=== PATIENT | male | born 1965 | race Caucasian/White ===

== ENCOUNTER 2016-06-07 12:44 | Emergency (ER) | payer OTHER ==
[2016-06-07 13:49] VITALS: RESP 18
--- NOTE | 2016-06-07 14:55 | ED ---
General Adult HPI - General Chief complaint: Psychiatric Symptoms Stated complaint: Mental Health Time Seen by Provider: 06/07/16 14:33 Source: patient, family, RN/MD, RN notes reviewed Mode of arrival: ambulatory Limitations: no limitations - History of Present Illness Initial comments: Chief complaint and history of present illness a 51-year-old male sent emergency room from his doctor's office for evaluation by psychiatrist. And possible recommendation for medications for depression. Patient reports she's been depressed lately for multiple reasons one he is not alcoholic to he had part of his colon removed because of a perforated diverticulitis. And in this last several weeks he's been from his and wants a divorce. Patient reports that he has been depressed and he does not specifically say he is suicidal but said if he did he probably just overdosed on pills. He has been drinking again but not as much as he used to. wants to put him on Antabuse. wants the psychiatrist to evaluate for medication alteration. He is currently on mirtazapine and sertraline. - Related Data Home Medications Medication Instructions Recorded Confirmed Ascorbic Acid [Vitamin C] 500 mg PO DAILY 02/23/16 06/07/16 Cholecalciferol [Vitamin D3] 1,000 unit PO DAILY 02/23/16 06/07/16 Ibuprofen [Motrin] 800 mg PO TID PRN 02/23/16 06/07/16 Losartan [Cozaar] 25 mg PO DAILY 02/23/16 06/07/16 Sertraline [Zoloft] 150 mg PO DAILY 02/23/16 06/07/16 Simvastatin [Zocor] 40 mg PO DAILY 02/23/16 06/07/16 ALPRAZolam [Xanax] 0.5 mg PO DAILY PRN 05/04/16 06/07/16 Previous Rx's Medication Instructions Recorded Docusate [Colace] 100 mg PO BID #30 capsule 05/09/16 HYDROcodone/APAP 7.5-325MG [[place] 1 tab PO Q6HR PRN #20 tab 05/09/16 7.5-325] chlordiazePOXIDE HCl [Librium] 25 mg PO TID #15 capsule 06/07/16 cloNIDine HCL [Catapres] 0.1 mg PO BID #30 tab 06/07/16 Allergies Allergy/AdvReac Type Severity Reaction Status Date / Time No Known Allergies Allergy Verified 06/07/16 13:47 Review of Systems ROS Statement: Those systems with pertinent positive or pertinent negative responses have been documented in the HPI. Review of systems. Patient denying any headache or visual acuity changes no chest pain or shortness breath no GI/ problems. Recently he had his colostomy taken down. No difficulty with bowel movements. Denies any neuro deficits. Chief complaint is that of depression. All systems were otherwise reviewed. Past medical problems depression recently. Alcohol dependency, diverticulitis leading to a perforated diverticulitis. Surgeries bowel resection several months ago. He also had his septum repaired. Family history strokes and also there is family history of colon cancer he's been getting his colonoscopies routinely. Father was alcohol dependent. Denies any ALLERGIES. Nonsmoker. Alcohol use patient states she's not alcoholic. He states he had withdrawal problems when he came in for surgery he then detoxified all in hospital. In his starting to drink again but not heavily. ROS Other: All systems not noted in ROS Statement are negative. Past Medical History Past Medical History: Hyperlipidemia, Hypertension, Sleep Apnea/CPAP/BIPAP Additional Past Medical History / Comment(s): diverticulitis, colostomy, hx migraines History of Any Multi-Drug Resistant Organisms: None Reported Past Surgical History: Bowel Resection Additional Past Surgical History / Comment(s): deviated septum, colostomy(d/t diverticulitis), 16-16 had reverdal of colostomy. Past Anesthesia/Blood Transfusion Reactions: No Reported Reaction Past Psychological History: Anxiety, Depression Smoking Status: Former smoker Past Alcohol Use History: Occasional Additional Past Alcohol Use History / Comment(s): pt stated he started smoking at age 17 was smoking 1.5 ppd when he quit 2000 , past alcohol use Past Drug Use History: Marijuana Additional Drug Use History / Comment(s): occ use - Past Family History Mother Family Medical History: Congestive Heart Failure (CHF), CVA/TIA, Diabetes Mellitus (Mother is 85-year-old has history of diabetes type 2, chronic kidney disease stage III, hypertension, history of anemia of renal disease.) Additional Family Medical History / Comment(s): age 56 -stroke Father Family Medical History: COPD (Father at age of 72 from COPD he also had history of CVA at the age of 56) Brother(s) Family Medical History: No Reported History (Patient has 2 brothers no major medical problems) Sister(s) Family Medical History: No Reported History (Patient has 3 sisters no major medical problems.) Daughter(s) Family Medical History: No Reported History (Patient has 2 daughters no major medical problems) Son(s) Family Medical History: No Reported History (Patient has one son no major medical problems) General Exam - General Exam Comments Initial Comments: General: The patient is awake and alert, sent here by his private physician from the office for evaluation by psychiatry and possible alteration of medications. Patient reports he is depressed and if he were suicidal he would overdose on pills but states he is not thinking of suicide. Vital signs show temp 98.8 pulse 88 respiratory rate 18 pulse ox 90% room air blood pressure elevated 165/ 101. This will be repeated when is less anxious. Eye: Pupils are equal, round and reactive to light, extra-ocular movements are intact ; there is normal conjunctiva bilaterally. No signs of icterus. Ears, nose, mouth and throat: There are moist mucous membranes and no oral lesions. Neck: The neck is supple, there is no tenderness or JVD. Cardiovascular: There is a regular rate and rhythm. No murmur, rub or gallop is appreciated. Respiratory: Lungs are clear to auscultation, respirations are non-labored, breath sounds are equal. No wheezes, stridor, rales, or rhonchi. Gastrointestinal: Soft, non-distended, non-tender abdomen without masses or organomegaly noted. There is no rebound or guarding present. No CVA tenderness. Bowel sounds are unremarkable. Back: There is no tenderness to palpation in the midline. There is no obvious deformity. No rashes noted. Musculoskeletal: Normal ROM, no tenderness, There is no pedal edema. There is no calf tenderness or swelling. Sensation intact. Pulses equal bilaterally 2+. Neurological: CN II-XII intact, There are no obvious motor or sensory deficits. Coordination appears grossly intact. Speech is normal. No focal or lateralizing findings Skin: Skin is warm and dry and no rashes or lesions are noted. Psychiatric: Cooperative, appropriate mood & affect, normal judgment. Recently depressed on medications that aren't helping. Here for evaluation of possible medication alteration. Limitations: no limitations Course Vital Signs 06/07/16 06/07/16 13:47 17:24 Temperature 98.8 F 99.4 F Pulse Rate 88 79 Respiratory 18 18 Rate Blood Pressure 165/101 157/99 O2 Sat by Pulse 98 98 Oximetry Medical Decision Making - Medical Decision Making Patient's urine was positive for opiates, benzodiazepines and THC. Patient was evaluated by psychiatric nurse, she spoke at length with the psychiatrist. He recommends Librium, stopping Xanax, continue clonidine 0.1 as per his family doctor's orders as well the patient to following-up tomorrow morning at [facility], patient agrees sister will be driving him. - Lab Data Lab Results 06/07/16 06/07/16 Range/Units 15:12 15:12 Salicylates <1.0 mg/dL Urine Opiates Screen Detected H (NotDetected) Ur Oxycodone Screen Not Detected (NotDetected) Urine Methadone Screen Not Detected (NotDetected) Ur Propoxyphene Screen Not Detected (NotDetected) Acetaminophen <10.0 ug/mL Ur Barbiturates Screen Not Detected (NotDetected) U Tricyclic Antidepress Not Detected (NotDetected) Ur Phencyclidine Scrn Not Detected (NotDetected) Ur Amphetamines Screen Not Detected (NotDetected) U Methamphetamines Scrn Not Detected (NotDetected) U Benzodiazepines Scrn Detected H (NotDetected) Urine Cocaine Screen Not Detected (NotDetected) U Marijuana (THC) Screen Detected H (NotDetected) Disposition Clinical Impression: Major depression, Alcohol abuse Disposition: HOME SELF-CARE Condition: Fair Instructions: Depression (ED) Additional Instructions: Stop Xanax, start Librium and clonidine. Follow-up tomorrow with [facility] as arranged Prescriptions: chlordiazePOXIDE HCl [Librium] 25 mg PO TID #15 capsule cloNIDine HCL [Catapres] 0.1 mg PO BID #30 tab Time of Disposition: 18:11
[2016-06-07 15:28] LABS: Acetaminophen <10.0 ug/mL; Salicylate <1.0 mg/dL
[2016-06-07 17:24] VITALS: BP 157/99; PULSE 79; TEMP 99.4
[2016-06-07] MEDS ORDERED: chlordiazePOXIDE 25 MG CAP PO STA (18:12)
[2016-06-07] MEDS ORDERED: cloNIDine HCL 0.1 MG TAB PO STA (18:15)
== END 2016-06-07 18:20 | disposition home or self-care (01) ==
LOC: EC 12:44
DX: F32.9 Major depressive disorder, single episode, unspecified (principal); F10.10 Alcohol abuse, uncomplicated; I10 Essential (primary) hypertension; E78.5 Hyperlipidemia, unspecified; F41.9 Anxiety disorder, unspecified; G47.30 Sleep apnea, unspecified; Z79.899 Other long term (current) drug therapy; Z99.89 Dependence on other enabling machines and devices; Z87.891 Personal history of nicotine dependence; Z87.19 Personal history of other diseases of the digestive system
CPT/HCPCS: 36415; 80306; 82075; 83520; 99284

== ENCOUNTER 2017-12-14 12:30 | Emergency (ER) | payer MEDICAID, OTHER ==
[2017-12-14 12:52] VITALS: RESP 18
--- NOTE | 2017-12-14 13:53 | ED ---
General Adult HPI - General Chief complaint: Alcohol Stated complaint: Detox Time Seen by Provider: 12/14/17 13:32 Source: patient, RN notes reviewed Mode of arrival: ambulatory Limitations: no limitations - History of Present Illness Initial comments: Patient is a 52-year-old male significant past medical history for alcoholism, presented to the emergency room today with a chief complaint of wanting stop drinking alcohol. He states his last drink was at 10 AM this morning. He is here with his children. Patient states that he's been drinking daily. He denies any thoughts of hurting himself. Admit that he does feel somewhat depressed but has no suicidal, homicidal thoughts or plans. Patient denies any other complaints or symptoms. Patient states he is planning to get into a rehab facility has been 1 past which did help him. Patient denies any recent fever, chills, back pain, abdominal pain, nausea or vomiting, numbness or tingling, dysuria or hematuria, constipation or diarrhea, headaches or visual changes, or any other complaints. - Related Data Home Medications Medication Instructions Recorded Confirmed Ascorbic Acid [Vitamin C] 500 mg PO DAILY 02/23/16 06/07/16 Cholecalciferol [Vitamin D3] 1,000 unit PO DAILY 02/23/16 06/07/16 Ibuprofen [Motrin] 800 mg PO TID PRN 02/23/16 06/07/16 Losartan [Cozaar] 25 mg PO DAILY 02/23/16 06/07/16 Sertraline [Zoloft] 150 mg PO DAILY 02/23/16 06/07/16 Simvastatin [Zocor] 40 mg PO DAILY 02/23/16 06/07/16 ALPRAZolam [Xanax] 0.5 mg PO DAILY PRN 05/04/16 06/07/16 Previous Rx's Medication Instructions Recorded Docusate [Colace] 100 mg PO BID #30 capsule 05/09/16 HYDROcodone/APAP 7.5-325MG [[place] 1 tab PO Q6HR PRN #20 tab 05/09/16 7.5-325] chlordiazePOXIDE HCl [Librium] 25 mg PO TID #15 capsule 06/07/16 cloNIDine HCL [Catapres] 0.1 mg PO BID #30 tab 06/07/16 Ondansetron Odt [Zofran ODT] 4 mg PO Q8HR PRN #20 tab 12/14/17 chlordiazePOXIDE HCl [Librium] 25 mg PO DIRECTED #22 capsule 12/14/17 cloNIDine HCL [Catapres] 0.1 mg PO BID #6 tab 12/14/17 Allergies Allergy/AdvReac Type Severity Reaction Status Date / Time No Known Allergies Allergy Verified 12/14/17 12:52 Review of Systems ROS Statement: Those systems with pertinent positive or pertinent negative responses have been documented in the HPI. ROS Other: All systems not noted in ROS Statement are negative. Past Medical History Past Medical History: Hyperlipidemia, Hypertension, Sleep Apnea/CPAP/BIPAP Additional Past Medical History / Comment(s): diverticulitis, colostomy, hx migraines History of Any Multi-Drug Resistant Organisms: None Reported Past Surgical History: Bowel Resection Additional Past Surgical History / Comment(s): deviated septum, colostomy(d/t diverticulitis), 05-05- had reversal of colostomy. Past Anesthesia/Blood Transfusion Reactions: No Reported Reaction Past Psychological History: Anxiety, Depression Smoking Status: Former smoker Past Alcohol Use History: Abuse, Daily, Heavy Past Drug Use History: Marijuana - Past Family History Mother Family Medical History: Congestive Heart Failure (CHF), CVA/TIA, Diabetes Mellitus (Mother is 85-year-old has history of diabetes type 2, chronic kidney disease stage III, hypertension, history of anemia of renal disease.) Additional Family Medical History / Comment(s): age 56 -stroke Father Family Medical History: COPD (Father at age of 72 from COPD he also had history of CVA at the age of 56) Brother(s) Family Medical History: No Reported History (Patient has 2 brothers no major medical problems) Sister(s) Family Medical History: No Reported History (Patient has 3 sisters no major medical problems.) Daughter(s) Family Medical History: No Reported History (Patient has 2 daughters no major medical problems) Son(s) Family Medical History: No Reported History (Patient has one son no major medical problems) General Exam - General Exam Comments Initial Comments: General: The patient is awake and alert, in no distress, and does not appear acutely ill. Eye: Pupils are equal, round and reactive to light, extra-ocular movements are intact. No nystagmus. There is normal conjunctiva bilaterally. No signs of icterus. Ears, nose, mouth and throat: There are moist mucous membranes and no oral lesions. Neck: The neck is supple, there is no tenderness or JVD. Cardiovascular: There is a regular rate and rhythm. No murmur, rub or gallop is appreciated. Respiratory: Lungs are clear to auscultation, respirations are non-labored, breath sounds are equal. No wheezes, stridor, rales, or rhonchi. Gastrointestinal: Soft, non-distended, non-tender abdomen without masses or organomegaly noted. There is no rebound or guarding present. No CVA tenderness. Musculoskeletal: Normal ROM. Strength 5/5. Sensation intact. Neurological: A&O x 3. CN II-XII intact, There are no obvious motor or sensory deficits. Coordination appears grossly intact. Speech is normal. Skin: Skin is warm and dry and no rashes or lesions are noted. Psychiatric: Cooperative, appropriate mood & affect, normal judgment. Limitations: no limitations Course Vital Signs 12/14/17 12:50 Temperature 98.1 F Pulse Rate 114 H Respiratory 18 Rate Blood Pressure 116/72 O2 Sat by Pulse 96 Oximetry Medical Decision Making - Medical Decision Making The patient will be given medications of clonidine, Zofran, Librium for alcohol withdrawals. Advised to follow-up with detox programs emergency room if his symptoms increase worsen or for any other concerns. Disposition Clinical Impression: Alcohol withdrawal Disposition: HOME SELF-CARE Condition: Good Instructions: Alcohol Withdrawal (ED) Prescriptions: chlordiazePOXIDE HCl [Librium] 25 mg PO DIRECTED #22 capsule cloNIDine HCL [Catapres] 0.1 mg PO BID #6 tab Ondansetron Odt [Zofran ODT] 4 mg PO Q8HR PRN #20 tab PRN Reason: Nausea Is patient prescribed a controlled substance at d/c from ED?: No Referrals: Liz Alonso MD [Primary Care Provider] - 1-2 days Time of Disposition: 13:53
[2017-12-14 14:25] VITALS: BP 139/97; PULSE 78; TEMP 98.6
== END 2017-12-14 14:23 | disposition home or self-care (01) ==
LOC: EC 12:30
DX: F10.239 Alcohol dependence with withdrawal, unspecified (principal); F32.9 Major depressive disorder, single episode, unspecified; E78.5 Hyperlipidemia, unspecified; I10 Essential (primary) hypertension; G47.30 Sleep apnea, unspecified; Z99.89 Dependence on other enabling machines and devices; F41.9 Anxiety disorder, unspecified; Z87.891 Personal history of nicotine dependence; Z79.899 Other long term (current) drug therapy; Z93.3 Colostomy status
CPT/HCPCS: 99283

== ENCOUNTER 2018-12-30 09:24 | Inpatient (IN) | payer MEDICAID, OTHER ==
[2018-12-30] MEDS ORDERED: LORazepam 2 MG/ML INJ IV STA (09:48)
--- NOTE | 2018-12-30 09:51 | ED ---
General Adult HPI - General Chief complaint: Psychiatric Symptoms Stated complaint: petition Time Seen by Provider: 12/30/18 09:25 Source: patient, RN notes reviewed Mode of arrival: ambulatory Limitations: no limitations - History of Present Illness Initial comments: This a 53-year-old male who presents to the emergency department with complaint of alcoholism and suicidal ideations. Patient is going to be petition by the police. Patient told the daughter multiple times and he wanted to kill himself he did not specify how. Police state he indicated that he did say those things but never repeated to the police. Patient states he is depressed and he is an alcoholic any occasion will go months without drinking but when he starts cannot stop. Patient states he's not sure he said he was suicidal or not but he states now he is not. Patient denies any physical complaints today. Patient denies any headache patient denies any chest pain difficulty breathing shortest breath per patient denies any abdominal pain. Patient denies any injury or fall recently. - Related Data Home Medications Medication Instructions Recorded Confirmed Cholecalciferol [Vitamin D3] 1,000 unit PO DAILY 02/23/16 12/30/18 Simvastatin [Zocor] 40 mg PO DAILY 02/23/16 12/30/18 Losartan Potassium 50 mg PO DAILY 12/14/17 12/30/18 Folic Acid 0.4 mg PO DAILY 12/30/18 12/30/18 Vitamin E 100 unit PO DAILY 12/30/18 12/30/18 Allergies Allergy/AdvReac Type Severity Reaction Status Date / Time No Known Allergies Allergy Verified 12/30/18 09:51 Review of Systems ROS Statement: Those systems with pertinent positive or pertinent negative responses have been documented in the HPI. ROS Other: All systems not noted in ROS Statement are negative. Past Medical History Past Medical History: Hyperlipidemia, Hypertension, Sleep Apnea/CPAP/BIPAP Additional Past Medical History / Comment(s): diverticulitis, colostomy, hx migraines, alcoholism History of Any Multi-Drug Resistant Organisms: None Reported Past Surgical History: Bowel Resection Additional Past Surgical History / Comment(s): deviated septum, colostomy(d/t diverticulitis), 05-05-16 had reversal of colostomy. Past Anesthesia/Blood Transfusion Reactions: No Reported Reaction Past Psychological History: Anxiety, Depression Smoking Status: Current every day smoker Past Alcohol Use History: Abuse, Daily, Heavy Past Drug Use History: Marijuana - Past Family History Mother Family Medical History: Congestive Heart Failure (CHF), CVA/TIA, Diabetes Mellitus (Mother is 85-year-old has history of diabetes type 2, chronic kidney disease stage III, hypertension, history of anemia of renal disease.) Additional Family Medical History / Comment(s): age 56 -stroke Father Family Medical History: COPD (Father at age of 72 from COPD he also had history of CVA at the age of 56) Brother(s) Family Medical History: No Reported History (Patient has 2 brothers no major medical problems) Sister(s) Family Medical History: No Reported History (Patient has 3 sisters no major medical problems.) Daughter(s) Family Medical History: No Reported History (Patient has 2 daughters no major medical problems) Son(s) Family Medical History: No Reported History (Patient has one son no major medical problems) General Exam - General Exam Comments Initial Comments: GENERAL: Patient is well-developed and well-nourished. Patient is nontoxic and well- hydrated and is in mild distress. ENT: Neck is soft and supple. No significant lymphadenopathy is noted. Oropharynx is clear. Moist mucous membranes. Neck has full range of motion without eliciting any pain. EYES: The sclera were anicteric and conjunctiva were pink and moist. Extraocular movements were intact and pupils were equal round and reactive to light. Eyelids were unremarkable. PULMONARY: Unlabored respirations. Good breath sounds bilaterally. No audible rales rhonchi or wheezing was noted. CARDIOVASCULAR: There is a regular rate and rhythm without any murmurs gallops or rubs. ABDOMEN: Soft and nontender with normal bowel sounds. SKIN: Skin is clear with no lesions or rashes and otherwise unremarkable. NEUROLOGIC: Patient is alert and oriented x3. Cranial nerves II through XII are grossly intact. Motor and sensory are also intact. Normal speech, volume and content. Symmetrical smile. MUSCULOSKELETAL: Normal extremities with adequate strength and full range of motion. LYMPHATICS: No significant lymphadenopathy is noted PSYCHIATRIC: Patient is very depressed and tearful throughout our conversation. Patient does deny being suicidal at this time. Patient admits he may have told his daughter was suicidal but he does not recall doing that at this time. Limitations: no limitations Course Vital Signs 12/30/18 09:24 Temperature 97.9 F Pulse Rate 103 H Respiratory 18 Rate Blood Pressure 150/108 O2 Sat by Pulse 96 Oximetry Medical Decision Making - Lab Data Result diagrams: 12/30/18 10:00 12/30/18 10:00 Lab Results 12/30/18 12/30/18 12/30/18 Range/Units 10:00 10:00 10:10 WBC 11.7 H (3.8-10.6) k/uL RBC 5.82 (4.30-5.90) m/uL Hgb 18.0 H (13.0-17.5) gm/dL Hct 52.6 (39.0-53.0) % MCV 90.4 (80.0-100.0) fL MCH 31.0 (25.0-35.0) pg MCHC 34.2 (31.0-37.0) g/dL RDW 13.8 (11.5-15.5) % Plt Count 333 (150-450) k/uL Neutrophils % 68 % Lymphocytes % 25 % Monocytes % 5 % Eosinophils % 1 % Basophils % 1 % Neutrophils # 7.9 H (1.3-7.7) k/uL Lymphocytes # 2.9 (1.0-4.8) k/uL Monocytes # 0.6 (0-1.0) k/uL Eosinophils # 0.1 (0-0.7) k/uL Basophils # 0.1 (0-0.2) k/uL Sodium 143 (137-145) mmol/L Potassium 4.0 (3.5-5.1) mmol/L Chloride 104 (98-107) mmol/L Carbon Dioxide 24 (22-30) mmol/L Anion Gap 15 mmol/L BUN 14 (9-20) mg/dL Creatinine 0.75 (0.66-1.25) mg/dL Est GFR (CKD-EPI)AfAm >90 (>60 ml/min/1.73 sqM) Est GFR (CKD-EPI)NonAf >90 (>60 ml/min/1.73 sqM) Glucose 120 H (74-99) mg/dL Calcium 9.3 (8.4-10.2) mg/dL Magnesium 2.1 (1.6-2.3) mg/dL Urine Opiates Screen Not Detected (NotDetected) Ur Oxycodone Screen Not Detected (NotDetected) Urine Methadone Screen Not Detected (NotDetected) Ur Propoxyphene Screen Not Detected (NotDetected) Ur Barbiturates Screen Not Detected (NotDetected) U Tricyclic Antidepress Not Detected (NotDetected) Ur Phencyclidine Scrn Not Detected (NotDetected) Ur Amphetamines Screen Not Detected (NotDetected) U Methamphetamines Scrn Not Detected (NotDetected) U Benzodiazepines Scrn Not Detected (NotDetected) Urine Cocaine Screen Not Detected (NotDetected) U Marijuana (THC) Screen Detected H (NotDetected) Serum Alcohol 372 H* mg/dL Disposition Clinical Impression: Suicidal ideations, Alcohol intoxication Disposition: ADMITTED IP TO THIS HOSP Referrals: Liz Alonso MD [Primary Care Provider] - 1-2 days Time of Disposition: 13:00
[2018-12-30] MEDS ORDERED: SODIUM CHLORIDE 0.9% 1,000 ML with MVI, ADULT NO.4 WITH VIT K 10 ML, THIAMINE 100 MG, F... IV ONE ×4 (10:00)
[2018-12-30 10:23] LABS: Basophils # (A) 0.1 k/uL (0-0.2); Basophils % (A) 1 %; Eosinophils # (A) 0.1 k/uL (0-0.7); Eosinophils % (A) 1 %; HCT 52.6 % (39.0-53.0); Lymphocytes # (A) 2.9 k/uL (1.0-4.8); Lymphocytes % (A) 25 %; MCHC 34.2 g/dL (31.0-37.0); MCV 90.4 fL (80.0-100.0); Mean Platelet Volume 6.7; Monocytes # (A) 0.6 k/uL (0-1.0); Monocytes % (A) 5 %; Neutrophils # (A) 7.9 k/uL (1.3-7.7); Neutrophils % (A) 68 %; Platelet Count 333 k/uL (150-450); RBC 5.82 m/uL (4.30-5.90); RDW 13.8 % (11.5-15.5); WBC 11.7 k/uL (3.8-10.6)
[2018-12-30 10:27] LABS: Amphetamine Screen,Urine Not Detected (NotDetected); Barbiturate Screen,Urine Not Detected (NotDetected); Benzodiazepines Screen,Urine Not Detected (NotDetected); Cocaine Screen,Urine Not Detected (NotDetected); Methadone Screen, Urine Not Detected (NotDetected); Opiate Screen,Urine Not Detected (NotDetected); Oxycodone Screen, Urine Not Detected (NotDetected); Phencyclidine Screen,Urine Not Detected (NotDetected); Tricyclic Antidepressant,Urine Not Detected (NotDetected); Urn Cannabinoid Scrn Detected (NotDetected)
[2018-12-30 10:37] LABS: African American GFR (CKD) >90 (>60 ml/min/1.73 sqM); Anion Gap 15 mmol/L; Blood Urea Nitrogen 14 mg/dL (9-20); Calcium 9.3 mg/dL (8.4-10.2); Carbon Dioxide 24 mmol/L (22-30); Chloride 104 mmol/L (98-107); Glucose 120 mg/dL (74-99); Magnesium 2.1 mg/dL (1.6-2.3); Sodium 143 mmol/L (137-145)
[2018-12-30 10:53] LABS: Alcohol 372 mg/dL
[2018-12-30] MEDS ORDERED: ESCITALOPRAM 20 MG TAB PO STA (12:24)
[2018-12-30] MEDS ORDERED: SODIUM CHLORIDE 0.9% 1,000 ML IV ONE (13:00)
[2018-12-30] MEDS ORDERED: LORazepam 2 MG/ML INJ IV PRN (13:01)
[2018-12-30] MEDS ORDERED: THIAMINE 100 MG/ML 2 ML VIAL IM STA (13:01)
[2018-12-30] MEDS: LORazepam 2 MG/ML INJ IV PRN ×2 (13:24→19:46)
--- NOTE | 2018-12-30 14:17 | P.HPIM ---
History of Present Illness H&P Date: 12/30/18 Chief Complaint: Alcohol abuse, suicidal This is a 53-year-old male patient of Dr. Bautista with a previous medical history significant for hypertension and hypertensive cardiovascular disease, history of sleep apnea, hyperlipidemia, history of chronic alcohol use and d ependence, generalized anxiety disorder and panic attacks, diverticulitis status post colostomy placement after Ady procedure with sigmoid colectomy status post reversal. Patient gives history that he has been drinking a fifth a day and has been alcoholic for greater than 15 years. He states he has been at [facility] twice and it did not help either time. He does not follow with a psychiatrist nor counselor. He last saw Dr. Alonso 6 months ago. He states he is on Lexapro for depression but it does not seem to be working for him and he complains of feeling significantly depressed area patient is tearful during interview. Patient apparently told family, daughter multiple times that he wanted to kill himself and place also indicated this to the ER staff. Patient presented to [facility] emergency center. He was afebrile, heart rate 103, blood pressure 150/108, pulse ox 96% on room air. WBC 11.7, hemoglobin 18, platelet count 333. Electrolytes, renal function within normal limits, blood sugar 120. Urine drug screen was positive for marijuana. Serum alcohol level 372. The patient was started on CIWA protocol with Ativan, home medications resumed, admitted to the MedSur floor. Past Medical History Past Medical History: Hyperlipidemia, Hypertension, Sleep Apnea/CPAP/BIPAP Additional Past Medical History / Comment(s): diverticulitis, colostomy, hx migraines, alcoholism History of Any Multi-Drug Resistant Organisms: None Reported Past Surgical History: Bowel Resection Additional Past Surgical History / Comment(s): deviated septum, colostomy(d/t diverticulitis), 12-16-16 had reversal of colostomy. Past Anesthesia/Blood Transfusion Reactions: No Reported Reaction Past Psychological History: Anxiety, Depression Smoking Status: Current every day smoker Past Alcohol Use History: Abuse, Daily, Heavy Additional Past Alcohol Use History / Comment(s): Patient started smoking at age 17 at one and half packs per day and quit in 2000. Patient is drinking a fifth of liquor per day for greater than 15 years. He also uses marijuana weekly. Patient lives alone. He has been for 2 years. He states he is in between jobs and not currently employed. Past Drug Use History: Marijuana - Past Family History Mother Family Medical History: Congestive Heart Failure (CHF), CVA/TIA, Diabetes Mellitus (Mother is 85-year-old has history of diabetes type 2, chronic kidney disease stage III, hypertension, history of anemia of renal disease.) Additional Family Medical History / Comment(s): Mother is 88-year-old has history of diabetes type 2, chronic kidney disease stage III, hypertension, history of anemia of renal disease. age 56 -stroke Father Family Medical History: COPD (Father at age of 72 from COPD he also had history of CVA at the age of 56) Additional Family Medical History / Comment(s): Father at age of 72 from COPD he also had history of CVA at the age of 56 Brother(s) Family Medical History: No Reported History (Patient has 2 brothers no major medical problems) Additional Family Medical History / Comment(s): Patient has 2 brothers and one has history of lymphoma. Sister(s) Family Medical History: No Reported History (Patient has 3 sisters no major medical problems.) Additional Family Medical History / Comment(s): Patient has 3 sisters with no major medical problems. Daughter(s) Family Medical History: No Reported History (Patient has 2 daughters no major medical problems) Additional Family Medical History / Comment(s): Patient has 2 daughters with no major medical problems. Son(s) Family Medical History: No Reported History (Patient has one son no major medical problems) Additional Family Medical History / Comment(s): Patient has one son with no major medical problems. Medications and Allergies Home Medications Medication Instructions Recorded Confirmed Type Cholecalciferol [Vitamin D3] 1,000 unit PO DAILY 02/23/16 12/30/18 History Simvastatin [Zocor] 40 mg PO DAILY 02/23/16 12/30/18 History Losartan Potassium 50 mg PO DAILY 12/14/17 12/30/18 History Folic Acid 0.4 mg PO DAILY 12/30/18 12/30/18 History Vitamin E 100 unit PO DAILY 12/30/18 12/30/18 History Allergies Allergy/AdvReac Type Severity Reaction Status Date / Time No Known Allergies Allergy Verified 12/30/18 09:51 Physical Exam Vitals: Vital Signs Temp Pulse Resp BP Pulse Ox 12/30/18 09:24 97.9 F 103 H 18 150/108 96 Intake and Output 12/29/18 12/30/18 12/30/18 22:59 06:59 14:59 Other: Weight 96.615 kg General appearance: no acute distress, patient tearful - EENT Eyes: anicteric sclerae, disc margins sharp, PERRLA, no ptosis, no scleral icterus, normal apperance ENT: hearing grossly normal, normal oropharynx, no thrush, no tonsillar exudates Ears: bilateral: normal - Neck Neck: no lymphadenopathy, normal ROM, no rigidity, no stridor, no thyromegaly Carotids: bilateral: upstroke normal Thyroid: bilateral: normal size - Respiratory Respiratory: bilateral: diminished, negative: dullness, rales, rhonchi, wheezing, prolonged expiration, prolonged inspiration - Cardiovascular Rhythm: regular Heart sounds: normal: S1, S2 Abnormal Heart Sounds: no systolic murmur, no S3 Gallop, no S4 Gallop, no click - Gastrointestinal General gastrointestinal: Normal bowel sounds, soft, no splenomegaly, no tenderness right-sided ventral hernia - Integumentary Integumentary: normal, normal turgor - Neurologic Neurologic: CNII-XII intact - Musculoskeletal Musculoskeletal: strength equal bilaterally - Psychiatric Psychiatric: A&O x's 2-3, no appropriate affect, no intact judgment & insight Results CBC & Chem 7: 12/30/18 10:00 12/30/18 10:00 Labs: Abnormal Lab Results - Last 24 Hours (Table) 12/30/18 12/30/18 12/30/18 Range/Units 10:00 10:00 10:10 WBC 11.7 H (3.8-10.6) k/uL Hgb 18.0 H (13.0-17.5) gm/dL Neutrophils # 7.9 H (1.3-7.7) k/uL Glucose 120 H (74-99) mg/dL U Marijuana (THC) Screen Detected H (NotDetected) Serum Alcohol 372 H* mg/dL Thrombosis Risk Factor Assmnt - DVT/VTE Prophylaxis DVT/VTE Prophylaxis: Pharmacologic Prophylaxis ordered Assessment and Plan Plan: 1. Alcohol intoxication with suicidal ideation. Patient started on the Ativan CIWA protocol. Continue IV fluids, thiamine twice daily, folic acid. Patient will be resumed on Lexapro. Consult with psychiatry for suicidal ideation. 2. Hypertension and hypertensive cardiovascular disease. Continue patient on losartan 50 mg orally once every day. 3. Hyperlipidemia. Continue simvastatin 40 mg orally at bedtime. 4. Obstructive sleep apnea. May continue CPAP per home settings. 5. BPH. Monitor for urinary retention. 6. Recurrent Depression. Continue Lexapro 20 mg every day. 7. Generalized Anxiety disorder. Continue Ativan. 8. History of diverticulitis status post colostomy placement with Ady procedures and reversal, stable area 9. Alcohol abuse. Continue as in #1. 10. DVT prophylaxis. SCDs and HARJEET hose. 11. GI prophylaxis. Pepcid Patient will be admitted to the hospital for a minimum of 2 night stay. Discharge plan: To be determined. Patient may require inpatient mental health admission. Impression and plan of care have been directed as dictated by the signing physician. Janina Altman nurse practitioner acting as scribe for signing physician.
[2018-12-30] MEDS: THIAMINE 100 MG TAB PO SCH ×2 (22:12→22:14)
[2018-12-31] MEDS: LORazepam 2 MG/ML INJ IV PRN ×6 (00:07→21:01)
[2018-12-31] MEDS ORDERED: LOSARTAN 25 MG TAB PO STA ×2 (08:33)
[2018-12-31] MEDS: FOLIC ACID 1 MG TAB PO SCH (08:54)
[2018-12-31] MEDS: ATORVASTATIN 20 MG TAB PO SCH (08:55)
[2018-12-31] MEDS: CHOLECALCIFEROL 1,000 UNIT TAB PO SCH (08:55)
[2018-12-31] MEDS: THIAMINE 100 MG TAB PO SCH ×2 (08:55→17:25)
[2018-12-31] MEDS ORDERED: ESCITALOPRAM 20 MG TAB PO SCH (09:00)
[2018-12-31] MEDS ORDERED: LOSARTAN 50 MG TAB PO SCH (09:00)
[2018-12-31] MEDS: VITAMIN E (DL,TOCOPHERYL ACET) 400 UNIT CAP PO SCH (09:01)
[2018-12-31] MEDS: cloNIDine HCL 0.1 MG TAB PO PRN ×2 (11:08→16:26)
[2018-12-31] MEDS: OLANZapine 5 MG TAB PO SCH ×2 (13:29→21:01)
--- NOTE | 2018-12-31 15:49 | P.PN ---
Subjective Progress Note Date: 12/31/18 This is a 53-year-old male patient of Dr. Bautista with a previous medical history significant for hypertension and hypertensive cardiovascular disease, history of sleep apnea, hyperlipidemia, history of chronic alcohol use and dependence, generalized anxiety disorder and panic attacks, diverticulitis status post colostomy placement after Ady procedure with sigmoid colectomy status post reversal. Patient gives history that he has been drinking a fifth a day and has been alcoholic for greater than 15 years. He states he has been at [facility] twice and it did not help either time. He does not follow with a psychiatrist nor counselor. He last saw Dr. Alonso 6 months ago. He states he is on Lexapro for depression but it does not seem to be working for him and he complains of feeling significantly depressed area patient is tearful during interview. Patient apparently told family, daughter multiple times that he wanted to kill himself and place also indicated this to the ER staff. Patient presented to [facility] emergency center. He was afebrile, heart rate 103, blood pressure 150/108, pulse ox 96% on room air. WBC 11.7, hemoglobin 18, platelet count 333. Electrolytes, renal function within normal limits, blood sugar 120. Urine drug screen was positive for marijuana. Serum alcohol level 372. The patient was started on CIWA protocol with Ativan, home medications resumed, admitted to the [facility] floor. 12/31: Patient has a sitter at the bedside. He does complain of significant depression. He is continued on Ativan protocol. Blood pressure has remained high and Cozaar has been increased to 50 mg twice daily and Catapres added as needed for systolic blood pressure greater than 160. Patient has been afebrile, heart rate 95, blood pressure 161/89, pulse ox 97% on room air. Awaiting psychiatry evaluation. Objective - Vital Signs Vital signs: Vital Signs Temp 98.2 F 12/31/18 07:00 Pulse 102 H 12/31/18 11:01 Resp 14 12/31/18 08:28 BP 172/109 12/31/18 11:01 Pulse Ox 98 12/31/18 07:00 Intake & Output 12/30/18 12/31/18 12/31/18 18:59 06:59 18:59 Intake Total 50 Balance 50 Weight 96.615 kg Intake: Oral 50 Other: Voiding Method Toilet Toilet Incontinent # Voids 3 # Bowel Movements 1 - Exam Review Of Systems: Constitutional: No fever, no chills, no night sweats. No weight change. Reports fatigue. Reports daytime sleepiness. EENT: No headache. No blurred vision or double vision, no loss of vision. No loss of Hearing, no ringing in the ears, no dizziness. No nasal drainage or congestion. No epistaxis. No sore throat. Lungs: No shortness of breath, cough, no sputum production. No wheezing. Cardiovascular: No chest pain, no lower extremity edema. No palpitations. No paroxysmal nocturnal dyspnea. No orthopnea. No lightheadedness or dizziness. No syncopal episodes. Abdominal: No abdominal pain. No nausea, vomiting. No diarrhea. No const ipation. No bloody or tarry stools.. No loss of appetite. Genitourinary: No dysuria, increased frequency, urgency. No urinary retention. Musculoskeletal: No myalgias. No muscle weakness, no gait dysfunction, no frequent falls. No back pain. No neck pain. Integumentary: No wounds, no lesions. No rash or pruritus. No unusual bruising. No change in hair or nails. Neurologic: No aphasia. No facial droop. No change in mentation. No head injury. No headache. No paralysis. No paresthesia. Psychiatric: Reports depression. No anxiety. No mood swings. Endocrine: No abnormal blood sugars. No weight change. No excessive sweating or thirst. No cold intolerance. General appearance: no acute distress - EENT Eyes: anicteric sclerae, disc margins sharp, PERRLA, no ptosis, no scleral icterus, normal apperance ENT: hearing grossly normal, normal oropharynx, no thrush, no tonsillar exudates Ears: bilateral: normal - Neck Neck: no lymphadenopathy, normal ROM, no rigidity, no stridor, no thyromegaly Carotids: bilateral: upstroke normal Thyroid: bilateral: normal size - Respiratory Respiratory: bilateral: diminished, negative: dullness, rales, rhonchi, wheezing, prolonged expiration, prolonged inspiration - Cardiovascular Rhythm: regular Heart sounds: normal: S1, S2 Abnormal Heart Sounds: no systolic murmur, no S3 Gallop, no S4 Gallop, no click - Gastrointestinal General gastrointestinal: Normal bowel sounds, soft, no splenomegaly, no tenderness right-sided ventral hernia - Integumentary Integumentary: normal, normal turgor - Neurologic Neurologic: CNII-XII intact - Musculoskeletal Musculoskeletal: strength equal bilaterally - Psychiatric Psychiatric: A&O x's 3, appropriate affect - Labs CBC & Chem 7: 12/30/18 10:00 12/30/18 10:00 Assessment and Plan Plan: 1. Alcohol intoxication with suicidal ideation. Patient started on the Ativan CIWA protocol. Continue IV fluids, thiamine twice daily, folic acid. Patient will be resumed on Lexapro. Consult with psychiatry for suicidal ideation. Sitter is at the bedside. 2. Hypertension and hypertensive cardiovascular disease. Continue patient on losartan 50 mg orally once every day. 3. Hyperlipidemia. Continue simvastatin 40 mg orally at bedtime. 4. Obstructive sleep apnea. May continue CPAP per home settings. 5. BPH. Monitor for urinary retention. 6. Recurrent Depression. Continue Lexapro 20 mg every day. 7. Generalized Anxiety disorder. Continue Ativan. 8. History of diverticulitis status post colostomy placement with Ady procedures and reversal, stable area 9. Alcohol abuse. Continue as in #1. 10. DVT prophylaxis. SCDs and HARJEET hose. 11. GI prophylaxis. Pepcid Discharge plan: To be determined. Patient may require inpatient mental health admission. Impression and plan of care have been directed as dictated by the signing physician. Janina Altman nurse practitioner acting as scribe for signing physician.
--- NOTE | 2018-12-31 17:41 | CONS ---
CONSULTATION DATE OF SERVICE: 12/31/2018. PURPOSE OF CONSULTATION: Evaluate for substance use disorder and statement about being suicidal. HISTORY OF PRESENT ILLNESS: The patient is a 53-year-old male. He has had long-term problems with alcohol dependence and mood disorder. He acknowledges that most of the problems he has had with his mood relates to difficulties he has had with drinking. He notes that he has had persistent drinking issues throughout his adult life. He might have periods of sobriety that could last from 2-6 months, though has never had an extended period of sobriety beyond that. He says his last period of sobriety was for about 2 months from December to February of 2018. He notes that at that time he went into substance abuse treatment at [facility] for a limited period of time. He notes that he did have a period of sobriety about 3 years ago for 6 months. He states that he has had past problems with pain medication abuse. In addition, he smokes marijuana. When he drinks, he says that in general he has problems with marijuana other than at times when he might be drinking. He says that he has had a number of stress issues in the last several years. Three years ago, he had a very difficult marriage situation and his after 23 years of marriage. He has a daughter 21 and son 18 from that marriage. He also has a daughter from another marriage. He says his 3 children have been supportive for him. He also notes that he gets positive support from siblings which includes 3 sisters and 2 brothers. He says that he has a successful life situation in that he has his own business doing appliance repair. He says that he is quite productive in that work. He notes that he lives with his 18-year-old son who he also identifies as a significant support for him. He says recently he has been drinking between a pint and a 5th per day. He states that when he is sober typically within about a month, he can feel fairly good in his mood without persistent problems with depression. He can have a much better outlook. He can be very positive in his daily life, then he may run into some innocuous situations where he might drink and then he quickly gets back into problematic drinking. He says that was the situation last fall when he relapsed into drinking. He sleeps fair at night. He has fairly good energy, motivation and interest when he is at work. He acknowledges that at home he will often isolate himself and then he recognize that creates problems for him with drinking. He says often he just stays in his house and then will watch the clock until 6 o'clock in the evening, which is the time where he then will say he can drink. He will drink in the evening. He does not drink during the day when he is working. He reports that he has not had past problems with delirium tremens or seizures from alcohol withdrawal. He has continued to show elevated blood pressure with his pressure this morning at 8:28 am being 177/134 with a pulse of 97, temp 98.2. His CIWA scores today have been hovering around 10. MENTAL STATUS: Patient gave fair eye contact. He was restless. He answered questions appropriately. He spoke in a soft at times airy voice. Sometimes it was hard to hear what he was saying. His thoughts were clear, coherent, and goal directed. He was spontaneous and interactive. His affect was anxious. His mood depressed. He was moderately distressed. There was no indication of thought disorder. Cognition was clear. ASSESSMENT: This 53-year-old male was diagnosed with alcohol dependence, acute alcohol withdrawal and at current risk for significant detox issues. He needs to continue on alcohol withdrawal protocol which currently involves p.r.n. Ativan as appropriate. I will start the patient on Zyprexa 5 mg 3 times a day. The aim of Zyprexa is to help reduce physiologic stress response relating to early alcohol withdrawal. I had an extensive discussion with the patient in regards to substance dependence issues as well as withdrawal. I indicated that the patient needs to anticipate increasing problems with withdrawal over the next 2 weeks, though have an expectation that persistence of withdrawal symptoms will continue well beyond 6 weeks. I discussed options for the patient to be referred to inpatient substance abuse treatment. The patient notes that he feels he has a fairly good understanding of his situation and has made many efforts in the past to curtail drinking which have been successful, though only to a limited extent. The patient feels that he can engage appropriately in outpatient treatment. I indicated that the patient might best be served by sitting down with his children and possibly his siblings as soon as possible at the time of discharge to get input in regard to how he can approach his difficulties to prevent relapse particular in the first 6 weeks of withdrawal. In addition, the patient plans to continue with individual therapy which he has been involved in. He says that he can see his therapist at least weekly if not more often. I strongly encouraged the patient to engage with his therapist, possibly on a twice a week basis for the next 4-6 weeks. We discussed a therapeutic activity program including a walking program and utilization of relaxation skills to not only help manage withdrawal symptoms also to help focus his thoughts away from impulses towards drinking. The patient appears to be quite motivated to engage in a program to help him move away from drinking. Patient clearly states that he has imperative to not drink or use any other abusive substances and states that he is well aware of. I would anticipate the patient needing an additional 24 hours of medical stabilization related to acute detox. I will continue to follow. SAVANA / DIVYA: [id number] /
[2018-12-31] MEDS: LOSARTAN 50 MG TAB PO SCH (21:01)
[2018-12-31 21:14] VITALS: RESP 20
[2019-01-01 05:56] VITALS: BP 157/98; PULSE 78; TEMP 98.6
[2019-01-01] MEDS: CHOLECALCIFEROL 1,000 UNIT TAB PO SCH (07:06)
[2019-01-01] MEDS: FOLIC ACID 1 MG TAB PO SCH (07:06)
[2019-01-01] MEDS: ATORVASTATIN 20 MG TAB PO SCH (07:06)
[2019-01-01] MEDS: OLANZapine 5 MG TAB PO SCH (07:06)
[2019-01-01] MEDS: LOSARTAN 50 MG TAB PO SCH (07:06)
[2019-01-01] MEDS: THIAMINE 100 MG TAB PO SCH (07:06)
[2019-01-01] MEDS: VITAMIN E (DL,TOCOPHERYL ACET) 400 UNIT CAP PO SCH (07:06)
--- NOTE | 2019-01-01 11:12 | CONS ---
CONSULTATION DATE OF SERVICE: 01/01/2019. PURPOSE FOR CONSULTATION: Evaluate for substance use disorder and statement about being suicidal. INTERVAL HISTORY: The patient has been doing fair. He had a quiet evening last night. He continues to run a high blood pressure, though last evening in this morning, the pressures were in a more acceptable range. As noted yesterday morning, his pressure was 177/134. He has shown consistent decline in blood pressures this morning. His pressure is 157/98 with a pulse of 78 and temp 98.6. The patient says that he has been having some sweating, though it is not clear that he is exhibiting diaphoresis. He slept fair last night when I reviewed issues relating to followup. The patient indicated that he has telephone numbers and contact information for outpatient resources. He said he also plans to have a family meeting as we discussed yesterday. He says he has been working out a plan to be more organized in his days and to have productive activities to keep him away from impulse towards drinking. He denies any problems with self-harm. This morning he was lying in bed. He gave fairly good eye contact. Psychomotor activity was slowed. Speech was monotone. His thoughts were clear. Affect was a little constricted. His mood was quiet. He did not appear to be distressed. ASSESSMENT: I will continue the current diagnosis and treatment plan. It does appear that the patient is cleared for discharge today from a medical standpoint. As far as any psychiatric issues, patient does appear to be motivated to set up followup for substance use issues. He seems to have a fairly good understanding of issues that he is dealing with at this point, in terms of acute withdrawal as well as managing the early phase of abstinence. It is appropriate for the patient to be discharged from my standpoint. MMJUL / DIVYA: [id number] /
[2019-01-01 11:13] VITALS: BMI 28.8
--- NOTE | 2019-01-01 14:42 | P.DS ---
Providers Date of admission: 12/30/18 13:00 Expected date of discharge: 01/01/19 Attending physician: Rashaad Mahoney Consults: 12/30/18 13:00 Consult Physician Urgent Consulting Provider: Rhys Ramsey Consult Reason/Comments: Suicidal ideations Do you want consulting provider notified?: Already Contacted Primary care physician: Liz Alonso [facility] Course: This is a 53-year-old male patient of Dr. Bautista with a previous medical history significant for hypertension and hypertensive cardiovascular disease, history of sleep apnea, hyperlipidemia, history of chronic alcohol use and dependence, generalized anxiety disorder and panic attacks, diverticulitis status post colostomy placement after Ady procedure with sigmoid colectomy status post reversal. Patient gives history that he has been drinking a fifth a day and has been alcoholic for greater than 15 years. He states he has been at [facility] twice and it did not help either time. He does not follow with a psychiatrist nor counselor. He last saw Dr. Alonso 6 months ago. He states he is on Lexapro for depression but it does not seem to be working for him and he complains of feeling significantly depressed area patient is tearful during interview. Patient apparently told family, daughter multiple times that he wanted to kill himself and place also indicated this to the ER staff. Patient presented to [facility] emergency center. He was afebrile, heart rate 103, blood pressure 150/108, pulse ox 96% on room air. WBC 11.7, hemoglobin 18, platelet count 333. Electrolytes, renal function within normal limits, blood sugar 120. Urine drug screen was positive for marijuana. Serum alcohol level 372. The patient was started on CIWA protocol with Ativan, home medications resumed, admitted to the [facility] floor. 12/31: Patient has a sitter at the bedside. He does complain of significant depression. He is continued on Ativan protocol. Blood pressure has remained high and Cozaar has been increased to 50 mg twice daily and Catapres added as needed for systolic blood pressure greater than 160. Patient has been afebrile, heart rate 95, blood pressure 161/89, pulse ox 97% on room air. Awaiting psychiatry evaluation. 01/01: Patient has been evaluated by Dr. Huynh with recommendations for Zyprexa 5 mg 3 times daily Toprol dose physiologic stress response to alcohol withdrawal. He discussed treatment plan options and patient is planning for outpatient follow-up and plan to involve family and therapist to be seen weekly if not more often. He encouraged patient to see his therapist at least twice weekly for the next 4-6 weeks. Also involve walking program and relaxation skills. Patient's blood pressure remains high and we will plan to start him on clonidine 0.1 mg twice daily scheduled at home in addition to the low surgeon at increased frequency twice daily@50 mg. Patient is anxious to be discharged home today. He has been cleared for discharge by psychiatry. Sitter was discontinued yesterday. Patient will be discharged home today in stable condition. Discharge diagnoses: 1. Alcohol intoxication with suicidal ideation. 2. Hypertension and hypertensive cardiovascular disease. 3. Hyperlipidemia. 4. Obstructive sleep apnea. 5. BPH. 6. Recurrent Depression. 7. Generalized Anxiety disorder. 8. History of diverticulitis status post colostomy placement with Ady procedures and reversal, stable 9. Alcohol abuse. Discharge plan: Home. Impression and plan of care have been directed as dictated by the signing physician. Janina Altman nurse practitioner acting as scribe for signing physician. Patient Condition at Discharge: Good Plan - Discharge Summary Discharge Rx Participant: No New Discharge Prescriptions: New cloNIDine HCL [Catapres] 0.1 mg PO BID #60 tab Losartan [Cozaar] 50 mg PO BID #60 tab Thiamine [Vitamin B-1] 100 mg PO DAILY tab OLANZapine [ZyPREXA] 5 mg PO TID #90 tab Continue Simvastatin [Zocor] 40 mg PO DAILY Cholecalciferol [Vitamin D3 (25 Mcg = 1000 Iu)] 1,000 unit PO DAILY Vitamin E 100 unit PO DAILY Folic Acid 0.4 mg PO DAILY Discontinued Losartan Potassium 50 mg PO DAILY Discharge Medication List Cholecalciferol [Vitamin D3 (25 Mcg = 1000 Iu)] 1,000 unit PO DAILY 02/23/16 [History] Simvastatin [Zocor] 40 mg PO DAILY 02/23/16 [History] Folic Acid 0.4 mg PO DAILY 12/30/18 [History] Vitamin E 100 unit PO DAILY 12/30/18 [History] Losartan [Cozaar] 50 mg PO BID #60 tab 01/01/19 [Rx] OLANZapine [ZyPREXA] 5 mg PO TID #90 tab 01/01/19 [Rx] Thiamine [Vitamin B-1] 100 mg PO DAILY tab 01/01/19 [Rx] cloNIDine HCL [Catapres] 0.1 mg PO BID #60 tab 01/01/19 [Rx] Follow up Appointment(s)/Referral(s): Liz Alonso MD [Primary Care Provider] - 1 Week (pt will make own appointment) Patient Instructions/Handouts: Alcohol Intoxication (DC) Discharge Disposition: HOME SELF-CARE
== END 2019-01-01 13:05 | disposition home or self-care (01) | DRG 897 ==
LOC: EC 09:24 → 4MS4W 13:00
PROVIDERS: ADMIT Internal Medicine Geriatric Medicine; ATTEND Internal Medicine Geriatric Medicine
DX: F10.129 Alcohol abuse with intoxication, unspecified (principal); R45.851 Suicidal ideations; E78.5 Hyperlipidemia, unspecified; F41.0 Panic disorder [episodic paroxysmal anxiety]; F17.200 Nicotine dependence, unspecified, uncomplicated; G47.33 Obstructive sleep apnea (adult) (pediatric); F32.9 Major depressive disorder, single episode, unspecified; I11.9 Hypertensive heart disease without heart failure; N40.0 Benign prostatic hyperplasia without lower urinary tract symptoms; Y90.8 Blood alcohol level of 240 mg/100 ml or more; Z82.5 Family history of asthma and other chronic lower respiratory diseases; Z82.49 Family history of ischemic heart disease and other diseases of the circulatory system; Z93.3 Colostomy status; Z82.3 Family history of stroke; Z83.3 Family history of diabetes mellitus; Z79.899 Other long term (current) drug therapy; Z90.49 Acquired absence of other specified parts of digestive tract; Z83.2 Family history of diseases of the blood and blood-forming organs and certain disorders involving the immune mechanism; Z84.1 Family history of disorders of kidney and ureter
CPT/HCPCS: 36415; 80048; 80306; 80320; 82075; 83735; 85025; 96365; 96366; 96375; 96376; 99285

== ENCOUNTER 2019-02-11 09:50 | Inpatient (IN) | payer OTHER ==
[2019-02-11 11:53] LABS: Amphetamine Screen,Urine Not Detected (NotDetected); Barbiturate Screen,Urine Not Detected (NotDetected); Benzodiazepines Screen,Urine Not Detected (NotDetected); Cocaine Screen,Urine Not Detected (NotDetected); Methadone Screen, Urine Not Detected (NotDetected); Opiate Screen,Urine Not Detected (NotDetected); Oxycodone Screen, Urine Not Detected (NotDetected); Phencyclidine Screen,Urine Not Detected (NotDetected); Tricyclic Antidepressant,Urine Not Detected (NotDetected); Urn Cannabinoid Scrn Detected (NotDetected)
[2019-02-11] MEDS ORDERED: LORazepam 2 MG/ML INJ IV STA ×2 (12:10→19:00)
[2019-02-11] MEDS ORDERED: SODIUM CHLORIDE 0.9% 1,000 ML with MVI, ADULT NO.4 WITH VIT K 10 ML, THIAMINE 100 MG, F... IV ONE ×4 (12:30)
[2019-02-11 13:03] LABS: ALT 81 U/L (21-72); AST 94 U/L (17-59); African American GFR (CKD) >90 (>60 ml/min/1.73 sqM); Alkaline Phosphatase 59 U/L (38-126); Anion Gap 13 mmol/L; Anisocytosis Slight; Basophils % (A) 0 %; Blood Urea Nitrogen 14 mg/dL (9-20); Calcium 8.7 mg/dL (8.4-10.2); Carbon Dioxide 19 mmol/L (22-30); Chloride 105 mmol/L (98-107); Creatine Kinase 178 U/L (55-170); Eosinophils # (A) 0.1 k/uL (0-0.7); Eosinophils % (A) 1 %; Glucose 105 mg/dL (74-99); HCT 45.6 % (39.0-53.0); HGB 16.2 gm/dL (13.0-17.5); Lymphocytes # (A) 2.3 k/uL (1.0-4.8); Lymphocytes % (A) 28 %; MCH 31.7 pg (25.0-35.0); MCHC 35.4 g/dL (31.0-37.0); MCV 89.4 fL (80.0-100.0); Mean Platelet Volume 6.8; Monocytes # (A) 0.4 k/uL (0-1.0); Monocytes % (A) 5 %; Neutrophils # (A) 5.4 k/uL (1.3-7.7); Neutrophils % (A) 65 %; Platelet Count 264 k/uL (150-450); RDW 16.2 % (11.5-15.5); Sodium 137 mmol/L (137-145); Total Bilirubin 1.4 mg/dL (0.2-1.3); Total Protein 6.9 g/dL (6.3-8.2); WBC 8.2 k/uL (3.8-10.6)
[2019-02-11] MEDS ORDERED: ONDANSETRON 4 MG/2 ML VIAL IVP STA (15:12)
[2019-02-11] MEDS ORDERED: NALOXONE 0.4 MG/ML 1 ML VIAL IV PRN (16:24)
--- NOTE | 2019-02-11 16:24 | ED ---
Psych HPI - General Chief Complaint: Psychiatric Symptoms Stated Complaint: ETOH/mental health Time Seen by Provider: 02/11/19 10:21 Source: patient, RN notes reviewed Mode of arrival: ambulatory - History of Present Illness Initial Comments: [id number] male with a history of depression and alcoholism who states she's been binge drinking at least a fifth of whiskey every day for over a week who is here today because he still depressed suicidal thoughts and believes he started with withdrawal. His last alcohol intake was at 7 AM this morning he feels as if he is going to start shaking some nausea. No hallucinations. MD Complaint: suicidal ideation, feels depressed, other - Related Data Home Medications Medication Instructions Recorded Confirmed Cholecalciferol [Vitamin D3 (25 1,000 unit PO DAILY 02/23/16 02/11/19 Mcg = 1000 Iu)] Simvastatin [Zocor] 40 mg PO DAILY 02/23/16 02/11/19 Folic Acid 0.4 mg PO DAILY 12/30/18 02/11/19 Vitamin E 100 unit PO DAILY 12/30/18 02/11/19 Previous Rx's Medication Instructions Recorded Losartan [Cozaar] 50 mg PO BID #60 tab 01/01/19 OLANZapine [ZyPREXA] 5 mg PO TID #90 tab 01/01/19 Thiamine [Vitamin B-1] 100 mg PO DAILY tab 01/01/19 cloNIDine HCL [Catapres] 0.1 mg PO BID #60 tab 01/01/19 Allergies Allergy/AdvReac Type Severity Reaction Status Date / Time No Known Allergies Allergy Verified 02/11/19 12:08 Review of Systems ROS Statement: Those systems with pertinent positive or pertinent negative responses have been documented in the HPI. ROS Other: All systems not noted in ROS Statement are negative. Past Medical History Past Medical History: Hyperlipidemia, Hypertension, Sleep Apnea/CPAP/BIPAP Additional Past Medical History / Comment(s): diverticulitis, colostomy, hx migraines, alcoholism History of Any Multi-Drug Resistant Organisms: None Reported Past Surgical History: Bowel Resection Additional Past Surgical History / Comment(s): deviated septum, colostomy(d/t diverticulitis), 05-05-16 had reversal of colostomy. Past Anesthesia/Blood Transfusion Reactions: No Reported Reaction Past Psychological History: Anxiety, Depression Smoking Status: Current every day smoker Past Alcohol Use History: Abuse, Daily, Heavy Past Drug Use History: Marijuana - Past Family History Mother Family Medical History: Diabetes Mellitus, Osteoarthritis (OA) Additional Family Medical History / Comment(s): back problems Father Family Medical History: COPD (Father at age of 72 from COPD he also had history of CVA at the age of 56) Additional Family Medical History / Comment(s): Father at age of 72 from COPD he also had history of CVA at the age of 56 Brother(s) Family Medical History: No Reported History (Patient has 2 brothers no major medical problems) Additional Family Medical History / Comment(s): Patient has 2 brothers and one has history of lymphoma. Sister(s) Family Medical History: No Reported History (Patient has 3 sisters no major medical problems.) Additional Family Medical History / Comment(s): Patient has 3 sisters with no major medical problems. Daughter(s) Family Medical History: No Reported History (Patient has 2 daughters no major medical problems) Additional Family Medical History / Comment(s): Patient has 2 daughters with no major medical problems. Son(s) Family Medical History: No Reported History (Patient has one son no major medical problems) Additional Family Medical History / Comment(s): Patient has one son with no major medical problems. General Exam - General Exam Comments Initial Comments: This is a well-developed well-nourished awake alert oriented 3 male who is demonstrating some evidence of tremors Limitations: no limitations General appearance: alert, anxious Head exam: Present: atraumatic, normocephalic, normal inspection Eye exam: Present: normal appearance, PERRL, EOMI. Absent: scleral icterus, conjunctival injection, periorbital swelling ENT exam: Present: mucous membranes dry Neck exam: Present: normal inspection. Absent: tenderness, meningismus, lymphadenopathy Respiratory exam: Present: normal lung sounds bilaterally. Absent: respiratory distress, wheezes, rales, rhonchi, stridor Cardiovascular Exam: Present: regular rate, normal rhythm, normal heart sounds. Absent: systolic murmur, diastolic murmur, rubs, gallop, clicks GI/Abdominal exam: Present: soft, normal bowel sounds. Absent: distended, tend erness, guarding, rebound, rigid Extremities exam: Present: normal inspection, full ROM, normal capillary refill. Absent: tenderness, pedal edema, joint swelling, calf tenderness Back exam: Present: normal inspection Neurological exam: Present: alert, oriented X3, CN II-XII intact Psychiatric exam: Present: normal affect, normal mood Skin exam: Present: warm, dry, intact, normal color. Absent: rash Course Vital Signs 02/11/19 02/11/19 10:04 15:09 Temperature 99.1 F Pulse Rate 93 90 Respiratory 18 16 Rate Blood Pressure 144/104 130/68 O2 Sat by Pulse 98 Oximetry - Reevaluation(s) Reevaluation #1: 02/11/19 16:22 Evaluation patient after sobriety was determined he is still depressed and having thoughts of suicidal particular plan Medical Decision Making - Medical Decision Making I did discuss the findings with the patient and with Dr. Barboza the patient she'll be admitted with psychiatric consultation. - Lab Data Result diagrams: 02/11/19 12:30 02/11/19 12:30 Lab Results 02/11/19 02/11/19 02/11/19 Range/Units 11:10 12:30 12:30 WBC 8.2 (3.8-10.6) k/uL RBC 5.10 (4.30-5.90) m/uL Hgb 16.2 (13.0-17.5) gm/dL Hct 45.6 (39.0-53.0) % MCV 89.4 (80.0-100.0) fL MCH 31.7 (25.0-35.0) pg MCHC 35.4 (31.0-37.0) g/dL RDW 16.2 H (11.5-15.5) % Plt Count 264 (150-450) k/uL Neutrophils % 65 % Lymphocytes % 28 % Monocytes % 5 % Eosinophils % 1 % Basophils % 0 % Neutrophils # 5.4 (1.3-7.7) k/uL Lymphocytes # 2.3 (1.0-4.8) k/uL Monocytes # 0.4 (0-1.0) k/uL Eosinophils # 0.1 (0-0.7) k/uL Basophils # 0.0 (0-0.2) k/uL Anisocytosis Slight Sodium 137 (137-145) mmol/L Potassium 5.0 (3.5-5.1) mmol/L Chloride 105 (98-107) mmol/L Carbon Dioxide 19 L (22-30) mmol/L Anion Gap 13 mmol/L BUN 14 (9-20) mg/dL Creatinine 0.65 L (0.66-1.25) mg/dL Est GFR (CKD-EPI)AfAm >90 (>60 ml/min/1.73 sqM) Est GFR (CKD-EPI)NonAf >90 (>60 ml/min/1.73 sqM) Glucose 105 H (74-99) mg/dL Calcium 8.7 (8.4-10.2) mg/dL Magnesium 2.0 (1.6-2.3) mg/dL Total Bilirubin 1.4 H (0.2-1.3) mg/dL AST 94 H (17-59) U/L ALT 81 H (21-72) U/L Alkaline Phosphatase 59 (38-126) U/L Creatine Kinase 178 H (55-170) U/L Total Protein 6.9 (6.3-8.2) g/dL Albumin 4.0 (3.5-5.0) g/dL Lipase 293 (23-300) U/L Urine Opiates Screen Not Detected (NotDetected) Ur Oxycodone Screen Not Detected (NotDetected) Urine Methadone Screen Not Detected (NotDetected) Ur Propoxyphene Screen Not Detected (NotDetected) Ur Barbiturates Screen Not Detected (NotDetected) U Tricyclic Antidepress Not Detected (NotDetected) Ur Phencyclidine Scrn Not Detected (NotDetected) Ur Amphetamines Screen Not Detected (NotDetected) U Methamphetamines Scrn Not Detected (NotDetected) U Benzodiazepines Scrn Not Detected (NotDetected) Urine Cocaine Screen Not Detected (NotDetected) U Marijuana (THC) Screen Detected H (NotDetected) Disposition Clinical Impression: Depression, Suicidal ideation, Alcohol withdrawal Disposition: ADMITTED IP TO THIS HOSP Condition: Fair Referrals: Liz Alonso MD [Primary Care Provider] - 1-2 days
[2019-02-11] MEDS ORDERED: SODIUM CHLORIDE 0.9% 1,000 ML IV SCH (16:30)
[2019-02-11] MEDS ORDERED: LORazepam 2 MG/ML INJ IV PRN (16:31)
[2019-02-11] MEDS: chlordiazePOXIDE 25 MG CAP PO STA ×2 (18:37→19:23)
[2019-02-11] MEDS: LORazepam 2 MG/ML INJ IV STA ×2 (18:37→19:23)
[2019-02-11] MEDS ORDERED: chlordiazePOXIDE 25 MG CAP PO STA (19:01)
[2019-02-11] MEDS: cloNIDine HCL 0.1 MG TAB PO SCH (20:32)
[2019-02-11] MEDS: LOSARTAN 50 MG TAB PO SCH (20:32)
[2019-02-11] MEDS: LORazepam 2 MG/ML INJ IV PRN (20:32)
[2019-02-11] MEDS: OLANZapine 5 MG TAB PO SCH (22:59)
[2019-02-11] MEDS: chlordiazePOXIDE 25 MG CAP PO SCH (22:59)
[2019-02-12] MEDS: LORazepam 2 MG/ML INJ IV PRN ×4 (00:17→19:55)
[2019-02-12] MEDS: LOSARTAN 50 MG TAB PO SCH ×2 (08:32→21:45)
[2019-02-12] MEDS: CHOLECALCIFEROL 1,000 UNIT TAB PO SCH (08:32)
[2019-02-12] MEDS: chlordiazePOXIDE 25 MG CAP PO SCH ×2 (08:32→15:24)
[2019-02-12] MEDS: cloNIDine HCL 0.1 MG TAB PO SCH (08:32)
[2019-02-12] MEDS: VITAMIN E (DL,TOCOPHERYL ACET) 400 UNIT CAP PO SCH (08:33)
[2019-02-12] MEDS: THIAMINE 100 MG TAB PO SCH (08:33)
[2019-02-12] MEDS: ATORVASTATIN 20 MG TAB PO SCH (08:33)
[2019-02-12] MEDS: OLANZapine 5 MG TAB PO SCH (08:33)
[2019-02-12] MEDS: FOLIC ACID 1 MG TAB PO SCH (08:33)
[2019-02-12] MEDS ORDERED: cloNIDine HCL 0.1 MG TAB PO STA (11:33)
[2019-02-12] MEDS: PANTOPRAZOLE 40 MG/10 ML VIAL IVP SCH (13:02)
[2019-02-12] MEDS: SODIUM CHLORIDE 0.9% 1,000 ML IV SCH (13:04)
--- NOTE | 2019-02-12 15:06 | P.CN ---
Psychiatric Consult - . Consult date: 02/12/19 Consult:: 02/12/19 14:42 IDENTIFYING DATA: This patient is a 53-year-old male with a history of chronic alcohol use who currently lives with his son in the house is self- employed and is currently . HISTORY OF PRESENT ILLNESS: The patient brought into the hospital yesterday for alcohol detox and depression with passive suicidal ideations. As per the ER note patient was binge drinking for the past week and was feeling depressed having his last drink yesterday morning. Patient was admitted for detoxification and evaluation of his depression by psychiatry. As per nurse taking care of the patient and she states that patient's mood has been improved today and patient is denying any suicidal ideations and has been fairly stable with regards to his withdrawal symptoms. [employer] Consultant spoke with patient at the bedside and patient was cooperative and pleasant. He states that he relapsed back on alcohol approximately a week and half ago drinking a fifth of vodka a day and states that he has been struggling with alcohol use for the past 2 years. He claims that he has been going to some meetings however has stopped going for several months which were helping him and patient admitted to having mild depression chronically. He states that he was being treated with Zyprexa as an outpatient however claims that it is not helping his mood and making him tired. He claims that at this time he is not suicidal and only had passive SI when he came in because "I felt so horrible going through withdrawals and being in the hospital" and now states that his mood is better. He admits to anxiety associated with the withdrawal and denies any shaking at this time and denies any previous history of seizures related to alcohol withdrawal. Patient denies any manic symptoms including flight of ideas increasing goal directed behavior. He admits to poor sleep and has admitted to alcohol being a big problem in his life and causing him to miss some days of work the past week and also he reports having a DUI at the age of 22. At this time patient denies any suicidal or homical ideations, intent or plan. Patient denies any auditory, visual hallucinations and denies any paranoia or delusions. Vision admits to using marijuana approximately 2 times a week to help him "calm down". He denies using any cigarettes or any other recreational drugs PAST PSYCHIATRIC HISTORY: Patient admits to history of depressed mood and chronic alcohol use. He states that he was following up with a counselor in [place] however stopped going about a year ago. He admits to going to rehab at [facility] approximately one year ago. Patient has never been admitted to the mental health unit. He denies any outpatient psychiatric follow-up. Patient was previously on Zyprexa 5 mg 3 times a day and admitted to be on another medication which she does not remember. PAST MEDICAL HISTORY: Hypertension, HLP, diverticulosis, struck to sleep apnea. ALLERGIES: No known drug allergies. CHEMICAL DEPENDENCY HISTORY: As per HPI. FAMILY PSYCHIATRIC/SUBSTANCE USE HISTORY: He states that alcoholism runs in his family specifically his father mother and sister. SOCIAL HISTORY: He states that he was born and raised in [place] [facility] [place] and graduated from high school and did some trade school. He states that now he lives with his son in the house and is self-employed doing appliance repair and is . MENTAL STATUS EXAM: General Appearance: Patient appears to be stated age is alert, pleasant, and cooperative. Patient appears to be in mild distress secondary to anxiety and withdrawal symptoms. Patient has fair hygiene and poor grooming Behavior: Patient is lying in bed without any agitated behavior. Speech: Patient's speech is fluent and nonpressured. Mood/Affect: Patient reports their mood is "down", affect is congruent Suicidality/Homicidality: Patient denies having any suicidal or homicidal ideation intent or plan. Perceptions: Patient denies any auditory or visual hallucinations. Though content/process: There is no evidence of any delusional thought content and thought process is linear and goal-directed. Memory and concentration: AOX3, grossly intact for the purposes of this session. Can spell "WORLD" backwards Judgment and insight: fair IMPRESSIONS: Major depressive disorder, mild Alcohol use disorder, moderate-severe currently in withdrawal Cannabis use disorder PLAN: -At this time patient does NOT meet criteria for inpatient psychiatric admission. -It appears that patient's depressive symptoms are exacerbated by alcohol use. At this time patient is not endorsing any suicidal or homicidal ideations and is currently going through alcohol withdrawal. He stated that his suicidal statements were in regards to his intoxication/withdrawal and describes protective factors being his employment and his son. He admitted to having guns however claims they are locked away. -Would recommend the following medication changes/additions: Will discontinue Zyprexa at this time as there is no indication for it. We will start Zoloft 50 mg daily for anxiety/depression with 1 dose starting now. Trazodone 50 mg daily at bedtime for insomnia and mood. Patient was also agreeable to start naltrexone 50 mg daily for alcohol cravings. -Okay to discontinue 1:1 sitter -Patient is continuing to withdrawal as his last drink was yesterday and will be within the delirium tremens window in the next 2-3 days. Vital signs stable at this time, continue close monitoring and CIWA along with Librium scheduled. -Patient's LFTs are mildly elevated at this time, likely from acute intoxication, continue to monitor. -Patient receiving multivitamin, thiamine and folic acid for chronic alcohol use. -Patient is not interested in inpatient substance rehab at this time however patient is interested in being reconnected with AA meetings in the community. spring salvage worker to assist with this. -Will continue to follow along 02/12/19 14:56
--- NOTE | 2019-02-12 15:08 | P.HPIM ---
History of Present Illness H&P Date: 02/12/19 This is a 53-year-old male patient of Dr. Alonso with a previous medical history significant for hypertension and hypertensive cardiovascular disease, history of sleep apnea, hyperlipidemia, history of chronic alcohol use and dependence, generalized anxiety disorder and panic attacks, diverticulitis status post colostomy placement after Ady procedure with sigmoid colectomy status post reversal. Patient gives history that he has been drinking a fifth a day and has been alcoholic for greater than 15 years he started drinking at age 16. He states he has been at [facility] twice and it did not help either time. He does not follow with a psychiatrist nor counselor. He has been on Lexapro for depression in the past but it does not seem to be working for him. He is currently on Zyprexa. Patient states he has had ongoing problems with depression even when he is not drinking. He denies any true suicidal ideation and no suicidal attempt but he states he wishes he wouldn't wake up. He has never been on the mental health unit here. He states he has gone up to a 1-1/2 weeks without any alcohol but for the past 8 days he has been drinking a fifth of vodka daily. His last alcohol intake was yesterday morning. He feels jittery and nauseated. He denies any abdominal pain. He states he has been admitted to the hospital before and it is helped in the past. His son drove him to the hospital. He does complain of a headache. No dysphagia. He denies any vomiting, no blood in stools or urine. Patient presented to [facility] emergency center. He was afebrile, heart rate 93, blood pressure 144/104, pulse ox 96% on room air. WBC 8.2, hemoglobin 16.2, platelet count 264. CO2 19, creatinine 0.65, blood sugar 105. Total bilirubin 1.4, AST 94, ALT 81, alkaline phosphatase 59, CK 178. Lipase 293. Urine drug screen was positive for marijuana. The patient was started on CIWA protocol with ativan, home medications resumed, admitted to the MedSur floor and consult requested with psychiatry. Alcohol level ordered and less than 10. Review Of Systems: Constitutional: No fever, no chills, no night sweats. No weight change. Reports fatigue. Reports daytime sleepiness. EENT: Reports headache. No blurred vision or double vision, no loss of vision. No loss of Hearing, no ringing in the ears, no dizziness. No nasal drainage or congestion. No epistaxis. No sore throat. Lungs: No shortness of breath, cough, no sputum production. No wheezing. Cardiovascular: No chest pain, no lower extremity edema. No palpitations. No paroxysmal nocturnal dyspnea. No orthopnea. No lightheadedness or dizziness. No syncopal episodes. Abdominal: No abdominal pain. Reports nausea, no vomiting. No diarrhea. No constipation. No bloody or tarry stools. Genitourinary: No dysuria, increased frequency, urgency. No urinary retention. Musculoskeletal: No myalgias. No muscle weakness, no gait dysfunction, no frequent falls. No back pain. No neck pain. Integumentary: No wounds, no lesions. No rash or pruritus. No unusual bruising. No change in hair or nails. Neurologic: No aphasia. No facial droop. No change in mentation. No head injury. No headache. No paralysis. No paresthesia. Psychiatric: Reports depression. No anxiety. No mood swings. Endocrine: No abnormal blood sugars. No weight change. No excessive sweating or thirst. No cold intolerance. Past Medical History Past Medical History: Hyperlipidemia, Hypertension, Sleep Apnea/CPAP/BIPAP Additional Past Medical History / Comment(s): diverticulitis, colostomy, hx migraines, alcoholism History of Any Multi-Drug Resistant Organisms: None Reported Past Surgical History: Bowel Resection Additional Past Surgical History / Comment(s): deviated septum, colostomy(d/t diverticulitis), 12-16-16 had reversal of colostomy. Past Anesthesia/Blood Transfusion Reactions: Previous Problems w/ Anesthesia Additional Past Anesthesia/Blood Transfusion Reaction / Comment(s): Uncontrolled hypertension post bowel resection Past Psychological History: Anxiety, Depression Smoking Status: Former smoker Past Alcohol Use History: Abuse, Daily, Heavy Additional Past Alcohol Use History / Comment(s): Patient started smoking at age 17 at one and half packs per day and quit in 2000. Patient is drinking a fifth of liquor per day for greater than 15 years. He also uses marijuana weekly. Patient lives alone. He has been for 2 years. He states he is in between jobs and not currently employed. Past Drug Use History: Marijuana Additional Drug Use History / Comment(s): occ use - Past Family History Mother Family Medical History: Diabetes Mellitus, Osteoarthritis (OA) Additional Family Medical History / Comment(s): back problems Father Family Medical History: COPD Additional Family Medical History / Comment(s): Father at age of 72 from COPD he also had history of CVA at the age of 56 Brother(s) Family Medical History: No Reported History Additional Family Medical History / Comment(s): Patient has 2 brothers and one has history of lymphoma. Sister(s) Family Medical History: No Reported History Additional Family Medical History / Comment(s): Patient has 3 sisters with no major medical problems. Daughter(s) Family Medical History: No Reported History Additional Family Medical History / Comment(s): Patient has 2 daughters with no major medical problems. Son(s) Family Medical History: No Reported History Additional Family Medical History / Comment(s): Patient has one son with no major medical problems. Medications and Allergies Home Medications Medication Instructions Recorded Confirmed Type Cholecalciferol [Vitamin D3 (25 1,000 unit PO DAILY 02/23/16 02/11/19 History Mcg = 1000 Iu)] Simvastatin [Zocor] 40 mg PO DAILY 02/23/16 02/11/19 History Folic Acid 0.4 mg PO DAILY 12/30/18 02/11/19 History Vitamin E 100 unit PO DAILY 12/30/18 02/11/19 History Losartan [Cozaar] 50 mg PO BID #60 tab 01/01/19 02/11/19 Rx OLANZapine [ZyPREXA] 5 mg PO TID #90 tab 01/01/19 02/11/19 Rx Thiamine [Vitamin B-1] 100 mg PO DAILY tab 01/01/19 02/11/19 Rx cloNIDine HCL [Catapres] 0.1 mg PO BID #60 tab 01/01/19 02/11/19 Rx Allergies Allergy/AdvReac Type Severity Reaction Status Date / Time No Known Allergies Allergy Verified 02/11/19 12:08 Physical Exam Vitals: Vital Signs Temp Pulse Pulse Resp BP BP Pulse Ox 02/12/19 05:28 160/98 02/12/19 04:42 97.9 F 75 18 160/102 97 02/12/19 00:20 95 18 02/12/19 00:05 162/102 02/11/19 23:00 95 181/110 02/11/19 20:17 98.7 F 84 16 167/111 95 02/11/19 18:20 92 16 150/91 100 02/11/19 15:09 90 16 130/68 Intake and Output 02/11/19 02/12/19 02/12/19 22:59 06:59 14:59 Intake Total 300 740 Balance 300 740 Intake: Intake, IV Titration 300 740 Amount Sodium Chloride 0.9% 1, 300 700 000 ml @ 100 mls/hr IV . Q10H7M ONE with Mvi, Adult No.4 with Vit K 10 ml with Thiamine 100 mg with Folic Acid 1 mg Rx#: [id number] Sodium Chloride 0.9% 1, 40 000 ml @ 20 mls/hr IV . Q24H [facility] Rx#:[id number] Other: Voiding Method Toilet Toilet # Voids 1 1 General appearance: no acute distress, sitter at bedside - EENT Eyes: anicteric sclerae, disc margins sharp, PERRLA, no ptosis, no scleral icte jackelyn, normal apperance ENT: hearing grossly normal, normal oropharynx, no thrush, no tonsillar exudates Ears: bilateral: normal - Neck Neck: no lymphadenopathy, normal ROM, no rigidity, no stridor, no thyromegaly Carotids: bilateral: upstroke normal Thyroid: bilateral: normal size - Respiratory Respiratory: bilateral: diminished, negative: dullness, rales, rhonchi, wheezing, prolonged expiration, prolonged inspiration - Cardiovascular Rhythm: regular Heart sounds: normal: S1, S2 Abnormal Heart Sounds: no systolic murmur, no S3 Gallop, no S4 Gallop, no click - Gastrointestinal General gastrointestinal: Normal bowel sounds, soft, no splenomegaly, no tenderness right-sided ventral hernia - Integumentary Integumentary: normal, normal turgor - Neurologic Neurologic: CNII-XII intact - Musculoskeletal Musculoskeletal: strength equal bilaterally - Psychiatric Psychiatric: A&O x's 3,appropriate affect, intact judgment & insight Results CBC & Chem 7: 02/11/19 12:30 02/11/19 12:30 Labs: Abnormal Lab Results - Last 24 Hours (Table) 02/11/19 02/11/19 02/11/19 Range/Units 11:10 12:30 12:30 RDW 16.2 H (11.5-15.5) % Carbon Dioxide 19 L (22-30) mmol/L Creatinine 0.65 L (0.66-1.25) mg/dL Glucose 105 H (74-99) mg/dL Total Bilirubin 1.4 H (0.2-1.3) mg/dL AST 94 H (17-59) U/L ALT 81 H (21-72) U/L Creatine Kinase 178 H (55-170) U/L U Marijuana (THC) Screen Detected H (NotDetected) Thrombosis Risk Factor Assmnt - DVT/VTE Prophylaxis DVT/VTE Prophylaxis: Pharmacologic Prophylaxis ordered - Choose All That Apply Any of the Below Risk Factors Present?: Yes Each Factor Represents 1 point: Age 41-60 years, Obesity (BMI >25) Other Risk Factors: No Other congenital or acquired thrombophilia - If yes, enter type in comment: No Thrombosis Risk Factor Assessment Total Risk Factor Score: 2 Thrombosis Risk Factor Assessment Level: Low Risk Assessment and Plan Plan: 1. Alcohol intoxication with possible suicidal ideation. Patient started on the Ativan CIWA protocol. Continue IV fluids, thiamine twice daily, folic acid. Consult with psychiatry for suicidal ideation, depression management. 2. Hypertension and hypertensive cardiovascular disease. Continue patient on losartan 50 mg orally once every day, increase clonidine to 0.2 mg twice daily.. 3. Hyperlipidemia. Continue simvastatin 40 mg orally at bedtime. 4. Obstructive sleep apnea. May continue CPAP per home settings. 5. BPH. Monitor for urinary retention. 6. Recurrent Depression. 7. Generalized Anxiety disorder. Continue Ativan. 8. History of diverticulitis status post colostomy placement with Ady procedures and reversal, stable area 9. Alcohol abuse. Continue as in #1. 10. DVT prophylaxis. SCDs and HARJEET hose. 11. GI prophylaxis. Pepcid Patient will be admitted to the hospital for a minimum of 2 night stay. Discharge plan: To be determined. Patient may require inpatient mental health admission. Impression and plan of care have been directed as dictated by the signing physician. Janina Altman nurse practitioner acting as scribe for signing physician.
[2019-02-12] MEDS: NALTREXONE HCL 50 MG TAB PO SCH (15:18)
[2019-02-12] MEDS: SERTRALINE 50 MG TAB PO SCH (15:18)
[2019-02-12] MEDS: MULTIVITAMINS, THERA 1 EACH TAB PO SCH (15:22)
[2019-02-12 19:43] VITALS: RESP 16
[2019-02-12] MEDS: traZODone HCL 50 MG TAB PO SCH (21:45)
[2019-02-12] MEDS: cloNIDine HCL 0.2 MG TAB PO SCH (21:46)
[2019-02-13] MEDS: chlordiazePOXIDE 25 MG CAP PO SCH ×3 (00:06→16:11)
[2019-02-13] MEDS: SODIUM CHLORIDE 0.9% 1,000 ML IV SCH ×2 (00:07→10:12)
[2019-02-13] MEDS: LORazepam 2 MG/ML INJ IV PRN ×4 (05:45→20:34)
[2019-02-13] MEDS: THIAMINE 100 MG TAB PO SCH (08:32)
[2019-02-13] MEDS: FAMOTIDINE 20 MG TAB PO SCH (08:32)
[2019-02-13] MEDS: FOLIC ACID 1 MG TAB PO SCH (08:32)
[2019-02-13] MEDS: PANTOPRAZOLE 40 MG/10 ML VIAL IVP SCH (08:32)
[2019-02-13] MEDS: CHOLECALCIFEROL 1,000 UNIT TAB PO SCH (08:32)
[2019-02-13] MEDS: LOSARTAN 50 MG TAB PO SCH ×2 (08:32→20:10)
[2019-02-13] MEDS: MULTIVITAMINS, THERA 1 EACH TAB PO SCH (08:32)
[2019-02-13] MEDS: ATORVASTATIN 20 MG TAB PO SCH (08:32)
[2019-02-13] MEDS: SERTRALINE 50 MG TAB PO SCH (08:33)
[2019-02-13] MEDS: cloNIDine HCL 0.2 MG TAB PO SCH ×2 (08:33→20:10)
[2019-02-13] MEDS: VITAMIN E (DL,TOCOPHERYL ACET) 400 UNIT CAP PO SCH (08:33)
[2019-02-13] MEDS: NALTREXONE HCL 50 MG TAB PO SCH (08:33)
--- NOTE | 2019-02-13 14:54 | P.PN ---
Subjective Progress Note Date: 02/13/19 This is a 53-year-old male patient of Dr. Alonso with a previous medical history significant for hypertension and hypertensive cardiovascular disease, history of sleep apnea, hyperlipidemia, history of chronic alcohol use and dependence, generalized anxiety disorder and panic attacks, diverticulitis status post colostomy placement after Ady procedure with sigmoid colectomy status post reversal. Patient gives history that he has been drinking a fifth a day and has been alcoholic for greater than 15 years he started drinking at age 16. He states he has been at [facility] twice and it did not help either time. He does not follow with a psychiatrist nor counselor. He has been on Lexapro for depression in the past but it does not seem to be working for him. He is currently on Zyprexa. Patient states he has had ongoing problems with depression even when he is not drinking. He denies any true suicidal ideation and no suicidal attempt but he states he wishes he wouldn't wake up. He has never been on the mental health unit here. He states he has gone up to a 1-1/2 weeks without any alcohol but for the past 8 days he has been drinking a fifth of vodka daily. His last alcohol intake was yesterday morning. He feels jittery and nauseated. He denies any abdominal pain. He states he has been admitted to the hospital before and it is helped in the past. His son drove him to the hospital. He does complain of a headache. No dysphagia. He denies any vomiting, no blood in stools or urine. Patient presented to [facility] emergency center. He was afe brile, heart rate 93, blood pressure 144/104, pulse ox 96% on room air. WBC 8.2, hemoglobin 16.2, platelet count 264. CO2 19, creatinine 0.65, blood sugar 105. Total bilirubin 1.4, AST 94, ALT 81, alkaline phosphatase 59, CK 178. Lipase 293. Urine drug screen was positive for marijuana. The patient was started on CIWA protocol with ativan, home medications resumed, admitted to the MedSur floor and consult requested with psychiatry. Alcohol level ordered and less than 10. 02/13: Patient has been seen by psychiatry with recommendations to discontinue Zyprexa, start Zoloft 50 mg daily, trazodone 50 mg at bedtime and naltrexone 50 mg daily. Sitter was discontinued. Patient was started on these medications yesterday. He states he slept fairly well last night. Patient is afebrile, blood pressure 134/87, pulse ox 97% on room air, heart rate 73. We'll plan to monitor patient overnight and discharge home tomorrow. Objective - Vital Signs Vital signs: Vital Signs Temp 97.5 F L 02/13/19 05:00 Pulse 73 02/13/19 05:00 Resp 16 02/13/19 05:00 BP 134/87 02/13/19 05:00 Pulse Ox 97 02/13/19 05:00 Intake & Output 02/12/19 02/13/19 02/13/19 18:59 06:59 18:59 Intake Total 200 1390 Balance 200 1390 Intake: Intake, IV Titration 200 800 Amount Sodium Chloride 0.9% 1, 200 800 000 ml @ 100 mls/hr IV . Q10H [facility] Rx#:[id number] Oral 590 Other: Voiding Method Toilet Toilet Toilet # Voids 2 - Exam Review Of Systems: Constitutional: No fever, no chills, no night sweats. No weight change. Report s fatigue. Reports daytime sleepiness. EENT: Reports headache. No blurred vision or double vision, no loss of vision. No loss of Hearing, no ringing in the ears, no dizziness. No nasal drainage or congestion. No epistaxis. No sore throat. Lungs: No shortness of breath, cough, no sputum production. No wheezing. Cardiovascular: No chest pain, no lower extremity edema. No palpitations. No paroxysmal nocturnal dyspnea. No orthopnea. No lightheadedness or dizziness. No syncopal episodes. Abdominal: No abdominal pain. Reports nausea, no vomiting. No diarrhea. No constipation. No bloody or tarry stools. Genitourinary: No dysuria, increased frequency, urgency. No urinary retention. Musculoskeletal: No myalgias. No muscle weakness, no gait dysfunction, no frequent falls. No back pain. No neck pain. Integumentary: No wounds, no lesions. No rash or pruritus. No unusual bruisin g. No change in hair or nails. Neurologic: No aphasia. No facial droop. No change in mentation. No head injury. No headache. No paralysis. No paresthesia. Psychiatric: Reports depression. No anxiety. No mood swings. Endocrine: No abnormal blood sugars. No weight change. No excessive sweating or thirst. No cold intolerance. General appearance: no acute distress, sitter at bedside - EENT Eyes: anicteric sclerae, disc margins sharp, PERRLA, no ptosis, no scleral icterus, normal apperance ENT: hearing grossly normal, normal oropharynx, no thrush, no tonsillar exudates Ears: bilateral: normal - Neck Neck: no lymphadenopathy, normal ROM, no rigidity, no stridor, no thyromegaly Carotids: bilateral: upstroke normal Thyroid: bilateral: normal size - Respiratory Respiratory: bilateral: diminished, negative: dullness, rales, rhonchi, wheezing, prolonged expiration, prolonged inspiration - Cardiovascular Rhythm: regular Heart sounds: normal: S1, S2 Abnormal Heart Sounds: no systolic murmur, no S3 Gallop, no S4 Gallop, no click - Gastrointestinal General gastrointestinal: Normal bowel sounds, soft, no splenomegaly, no tenderness right-sided ventral hernia - Integumentary Integumentary: normal, normal turgor - Neurologic Neurologic: CNII-XII intact - Musculoskeletal Musculoskeletal: strength equal bilaterally - Psychiatric Psychiatric: A&O x's 3,appropriate affect, intact judgment & insight - Labs CBC & Chem 7: 02/11/19 12:30 02/11/19 12:30 Assessment and Plan Plan: 1. Alcohol intoxication with possible suicidal ideation. Patient started on the Ativan CIWA protocol and lirium. Discontinue IV fluids, continue thiamine twice daily, folic acid. Consult with psychiatry appreciated with recommendations to discontinue Zyprexa, start Zoloft 50 mg daily, trazodone 50 mg at bedtime and naltrexone 50 mg daily. Sitter was discontinued. 2. Hypertension and hypertensive cardiovascular disease. Continue patient on losartan 50 mg orally once every day, continue clonidine to 0.2 mg twice daily. 3. Hyperlipidemia. Continue simvastatin 40 mg orally at bedtime. 4. Obstructive sleep apnea. May continue CPAP per home settings. 5. BPH. Monitor for urinary retention. 6. Recurrent Depression. 7. Generalized Anxiety disorder. Continue Ativan. 8. History of diverticulitis status post colostomy placement with Ady procedures and reversal, stable area 9. Alcohol abuse. Continue as in #1. 10. DVT prophylaxis. SCDs and HARJEET templee. 11. GI prophylaxis. Pepcid Discharge plan: Home tomorrow. Impression and plan of care have been directed as dictated by the signing physician. Janina Altman nurse practitioner acting as scribe for signing physician.
[2019-02-13] MEDS: traZODone HCL 50 MG TAB PO SCH (20:10)
[2019-02-14] MEDS: chlordiazePOXIDE 25 MG CAP PO SCH ×2 (00:10→08:33)
[2019-02-14 05:31] VITALS: BP 125/63; PULSE 66; TEMP 97.8
[2019-02-14] MEDS ORDERED: PANTOPRAZOLE 40 MG TABLET PO SCH (07:30)
[2019-02-14] MEDS: CHOLECALCIFEROL 1,000 UNIT TAB PO SCH (08:33)
[2019-02-14] MEDS: ATORVASTATIN 20 MG TAB PO SCH (08:33)
[2019-02-14] MEDS: MULTIVITAMINS, THERA 1 EACH TAB PO SCH (08:33)
[2019-02-14] MEDS: LOSARTAN 50 MG TAB PO SCH (08:33)
[2019-02-14] MEDS: THIAMINE 100 MG TAB PO SCH (08:34)
[2019-02-14] MEDS: cloNIDine HCL 0.2 MG TAB PO SCH (08:34)
[2019-02-14] MEDS: VITAMIN E (DL,TOCOPHERYL ACET) 400 UNIT CAP PO SCH (08:34)
[2019-02-14] MEDS: FAMOTIDINE 20 MG TAB PO SCH (08:34)
[2019-02-14] MEDS: NALTREXONE HCL 50 MG TAB PO SCH (08:34)
[2019-02-14] MEDS: FOLIC ACID 1 MG TAB PO SCH (08:34)
[2019-02-14 08:38] LABS: ALT 64 U/L (21-72); AST 40 U/L (17-59); African American GFR (CKD) >90 (>60 ml/min/1.73 sqM); Albumin 3.4 g/dL (3.5-5.0); Alkaline Phosphatase 73 U/L (38-126); Anion Gap 6 mmol/L; Blood Urea Nitrogen 10 mg/dL (9-20); Calcium 8.8 mg/dL (8.4-10.2); Carbon Dioxide 29 mmol/L (22-30); Chloride 104 mmol/L (98-107); Glucose 87 mg/dL (74-99); Potassium 4.2 mmol/L (3.5-5.1); Sodium 139 mmol/L (137-145); Total Bilirubin 0.7 mg/dL (0.2-1.3); Total Protein 5.9 g/dL (6.3-8.2)
[2019-02-14] MEDS ORDERED: SERTRALINE 100 MG TAB PO SCH (09:00)
--- NOTE | 2019-02-14 14:40 | P.DS ---
Providers Date of admission: 02/11/19 16:24 Expected date of discharge: 02/14/19 Attending physician: Sailaja Barboza Consults: 02/11/19 16:26 Consult Physician Routine Consulting Provider: Primitivo Lora Consult Reason/Comments: Depression, suicidal ideation Do you want consulting provider notified?: Yes Primary care physician: Liz Alonso [facility] Course: This is a 53-year-old male patient of Dr. Alonso with a previous medical history significant for hypertension and hypertensive cardiovascular disease, history of sleep apnea, hyperlipidemia, history of chronic alcohol use and dependence, generalized anxiety disorder and panic attacks, diverticulitis status post colostomy placement after Ady procedure with sigmoid colectomy status post reversal. Patient gives history that he has been drinking a fifth a day and has been alcoholic for greater than 15 years he started drinking at age 16. He states he has been at [facility] twice and it did not help either time. He does not follow with a psychiatrist nor counselor. He has been on Lexapro for depression in the past but it does not seem to be working for him. He is currently on Zyprexa. Patient states he has had ongoing problems with depression even when he is not drinking. He denies any true suicidal ideation and no suicidal attempt but he states he wishes he wouldn't wake up. He has never been on the mental health unit here. He states he has gone up to a 1-1/2 weeks without any alcohol but for the past 8 days he has been drinking a fifth of vodka daily. His last alcohol intake was yesterday morning. He feels jittery and nauseated. He denies any abdominal pain. He states he has been admitted to the hospital before and it is helped in the past. His son drove him to the hospital. He does complain of a headache. No dysphagia. He denies any vomiting, no blood in stools or urine. Patient presented to [facility] emergency center. He was afebrile, heart rate 93, blood pressure 144/104, pulse ox 96% on room air. WBC 8.2, hemoglobin 16.2, platelet count 264. CO2 19, creatinine 0.65, blood sugar 105. Total bilirubin 1.4, AST 94, ALT 81, alkaline phosphatase 59, CK 178. Lipase 293. Urine drug screen was positive for marijuana. The patient was started on CIWA protocol with ativan, home medications resumed, [facility] and consult requested with psychiatry. Alcohol level ordered and less than 10. 02/13: Patient has been seen by psychiatry with recommendations to discontinue Zyprexa, start Zoloft 50 mg daily, trazodone 50 mg at bedtime and naltrexone 50 mg daily. Sitter was discontinued. Patient was started on these medications yesterday. He states he slept fairly well last night. Patient is afebrile, blood pressure 134/87, pulse ox 97% on room air, heart rate 73. We'll plan to monitor patient overnight and discharge home tomorrow. 02/14: Patient is anxious to be discharged home today. He states he has a little bit anxious. He has been recommended to assess Dr. Alonso about BuSpar when he has follow-up in the office. Patient is being discharged on Librium. Patient will be discharged home today in stable condition. Discharge diagnoses: 1. Alcohol intoxication with possible suicidal ideation. 2. Hypertension and hypertensive cardiovascular disease. 3. Hyperlipidemia. 4. Obstructive sleep apnea. 5. BPH. 6. Recurrent Depression. 7. Generalized Anxiety disorder. 8. History of diverticulitis status post colostomy placement with Ady procedures and reversal, stable area 9. Alcohol abuse. Discharge plan: Home Impression and plan of care have been directed as dictated by the signing physician. Janina Altman nurse practitioner acting as scribe for signing physician. Patient Condition at Discharge: Good Plan - Discharge Summary Discharge Rx Participant: No New Discharge Prescriptions: New traZODone HCL [Desyrel] 50 mg PO HS #30 tab chlordiazePOXIDE HCl [Librium] 25 mg PO Q8HR #30 cap Multivitamins, Thera [Multivitamin (formulary)] 1 each PO DAILY tab Famotidine [Pepcid] 20 mg PO DAILY #30 tab Naltrexone HCl [Revia] 50 mg PO DAILY #30 tab Sertraline [Zoloft] 100 mg PO DAILY #30 tab Continue Simvastatin [Zocor] 40 mg PO DAILY Cholecalciferol [Vitamin D3 (25 Mcg = 1000 Iu)] 1,000 unit PO DAILY Vitamin E 100 unit PO DAILY Folic Acid 0.4 mg PO DAILY cloNIDine HCL [Catapres] 0.1 mg PO BID #60 tab Losartan [Cozaar] 50 mg PO BID #60 tab Thiamine [Vitamin B-1] 100 mg PO DAILY tab Discontinued OLANZapine [ZyPREXA] 5 mg PO TID #90 tab Discharge Medication List Cholecalciferol [Vitamin D3 (25 Mcg = 1000 Iu)] 1,000 unit PO DAILY 02/23/16 [History] Simvastatin [Zocor] 40 mg PO DAILY 02/23/16 [History] Folic Acid 0.4 mg PO DAILY 12/30/18 [History] Vitamin E 100 unit PO DAILY 12/30/18 [History] Losartan [Cozaar] 50 mg PO BID #60 tab 01/01/19 [Rx] Thiamine [Vitamin B-1] 100 mg PO DAILY tab 01/01/19 [Rx] cloNIDine HCL [Catapres] 0.1 mg PO BID #60 tab 01/01/19 [Rx] Famotidine [Pepcid] 20 mg PO DAILY #30 tab 02/14/19 [Rx] Multivitamins, Thera [Multivitamin (formulary)] 1 each PO DAILY tab 02/14/19 [Rx] Naltrexone HCl [Revia] 50 mg PO DAILY #30 tab 02/14/19 [Rx] Sertraline [Zoloft] 100 mg PO DAILY #30 tab 02/14/19 [Rx] chlordiazePOXIDE HCl [Librium] 25 mg PO Q8HR #30 cap 02/14/19 [Rx] traZODone HCL [Desyrel] 50 mg PO HS #30 tab 02/14/19 [Rx] Follow up Appointment(s)/Referral(s): Liz Alonso MD [Primary Care Provider] - 1 Week (Dr. Alonso's office will call patient with an appointment date and time. ) Patient Instructions/Handouts: Chlordiazepoxide (By mouth), Famotidine (By mouth), Trazodone (By mouth), Sertraline (By mouth), Naltrexone (By mouth), Depression (DC), Alcohol Withdrawal (DC), Anxiety (ED) Discharge Disposition: HOME SELF-CARE
== END 2019-02-14 12:07 | disposition home or self-care (01) | DRG 897 ==
LOC: EC 09:50 → 3NMEDONC 16:24
PROVIDERS: ADMIT Family Medicine; ATTEND Family Medicine
DX: F10.229 Alcohol dependence with intoxication, unspecified (principal); R45.851 Suicidal ideations; F33.0 Major depressive disorder, recurrent, mild; I11.9 Hypertensive heart disease without heart failure; F10.239 Alcohol dependence with withdrawal, unspecified; Y90.0 Blood alcohol level of less than 20 mg/100 ml; E78.5 Hyperlipidemia, unspecified; G47.33 Obstructive sleep apnea (adult) (pediatric); F41.0 Panic disorder [episodic paroxysmal anxiety]; R51 Headache; N40.0 Benign prostatic hyperplasia without lower urinary tract symptoms; F41.1 Generalized anxiety disorder; Z79.899 Other long term (current) drug therapy; Z87.891 Personal history of nicotine dependence; Z71.6 Tobacco abuse counseling; Z90.49 Acquired absence of other specified parts of digestive tract; Z98.890 Other specified postprocedural states; Z99.89 Dependence on other enabling machines and devices; Z86.69 Personal history of other diseases of the nervous system and sense organs; Z83.3 Family history of diabetes mellitus; Z82.61 Family history of arthritis; Z82.5 Family history of asthma and other chronic lower respiratory diseases; Z82.3 Family history of stroke; Z80.7 Family history of other malignant neoplasms of lymphoid, hematopoietic and related tissues
CPT/HCPCS: 36415; 80053; 80306; 80320; 82075; 82550; 83690; 83735; 85025; 96365; 96366; 96375; 96376; 99285

== ENCOUNTER 2021-08-12 12:39 | Day surgery (SDC) | payer MEDICAID, OTHER ==
[~2021-08-12 12:39] MED LIST: LACTATED RINGERS 1,000 ML IV SCH; LIDOCAINE 1% (10MG/ML) FOR IV START INTRADERMA PRN
[2021-08-12 13:20] VITALS: TEMP 97.8
[2021-08-12] MEDS ORDERED: PROPOFOL 10 MG/ML 20 ML VIAL IV ONE (13:39)
[2021-08-12] MEDS ORDERED: LIDOCAINE 1% INJ 10MG/ML (20 ML MDV) ONE (13:39)
--- NOTE | 2021-08-12 13:53 | P.OP ---
Date of Procedure: 08/12/21 Preoperative Diagnosis: screening Postoperative Diagnosis: polyp in sigmoid, sigmoid diverticulosis Anesthesia: MAC Surgeon: Mendel Benson Condition: stable Disposition: PACU Description of Procedure: patient is on the Endo suite placed in left lateral decubitus position underwent sedation per department of anesthesia timeout performed correct patient correct procedure correct site was verified rectal exam was performed no gross abnormalities noted scope was placed from the rectum to the cecum with ease and slowly withdrawn and sure to visualize all duval of the colon on the way out there was a small pedunculated polyp in the sigmoid colon removed venous hot snare polypectomy. There is also added sigmoid diverticuli noted no other abnormalities were noted scope was completely withdrawn patient tolerated procedure well no apparent comp locations on the repeat colonoscopy in 5-8 years pending pathology
[2021-08-12 14:02] VITALS: BP 96/59; PULSE 82; RESP 16
== END 2021-08-12 14:28 | disposition home or self-care (01) ==
LOC: ORWHC2ENDO 12:39
PROVIDERS: ATTEND Student in an Organized Health Care Education/Training Program
DX: Z12.11 Encounter for screening for malignant neoplasm of colon (principal); K63.5 Polyp of colon; K57.30 Diverticulosis of large intestine without perforation or abscess without bleeding; F32.A Depression, unspecified; E78.5 Hyperlipidemia, unspecified; F10.20 Alcohol dependence, uncomplicated; Z86.19 Personal history of other infectious and parasitic diseases; Z90.49 Acquired absence of other specified parts of digestive tract; Z82.3 Family history of stroke; Z82.49 Family history of ischemic heart disease and other diseases of the circulatory system; I10 Essential (primary) hypertension; G47.33 Obstructive sleep apnea (adult) (pediatric); F41.9 Anxiety disorder, unspecified; Z79.899 Other long term (current) drug therapy
CPT/HCPCS: 45385; J2001; J2704